=== PATIENT | male | born 1940 | race Caucasian/White ===

== ENCOUNTER 2018-05-02 08:30 | Outpatient (RCR) | payer MEDICARE, SELFPAY | END 2018-05-03 08:44 | LOC: CAR 08:30 | PROVIDERS: Family Provider Family Medicine; PCP Family Medicine; Visit Provider Family Medicine | DX: I20.9 Angina pectoris, unspecified (principal) | CPT/HCPCS: 93798 ==

== ENCOUNTER 2021-08-31 11:32 | Emergency (ER) | payer MEDICARE, SELFPAY ==
[2021-08-31] VITALS (8 sets, daily range): BP systolic 189–218; BP diastolic 99–111; PULSE 84–101; RESP 17–24; TEMP 36.2; O2SAT 95–100; BMI 26.6
--- NOTE | 2021-08-31 11:45 | DI.RAD.S_ITS ---
PROCEDURE: XR CHEST 1V INDICATIONS: shortness of breath TECHNIQUE: One view of the chest was acquired. COMPARISON: [facility], CHEST 2 VIEW, 12/09/2015, 17:18. [facility], CHEST 1 VIEW, 12/14/2015, 20:16. [facility], CHEST 1 VIEW, 01/09/2018, 16:50. FINDINGS: Surgical changes and devices: None. Lungs and pleura: Lungs are clear. No pleural effusions or pneumothorax. Mediastinum: The cardiac contours are within normal limits. The aorta demonstrates calcification and tortuosity. Bones and chest wall: No suspicious bony lesions. Age-appropriate bony degenerative changes are seen. Overlying soft tissues appear unremarkable. IMPRESSION: Portable chest within normal limits seen for age. If there is clinical concern for a developing pulmonary process, a short-term followup chest series (with PA and lateral views, performed in deep inspiration) is suggested for further evaluation. Dictated by: Dean Tomlinson M.D. on 08/31/2021 at 11:08 Approved by: Dean Tomlinson M.D. on 08/31/2021 at 11:08
[2021-08-31 11:59] LABS: Add Manual Diff / Slide Review NO; Basophils Absolute Auto 100 /uL (0-100); Basophils Percent Auto 0.9 % (0-2); Eosinophils Absolute Auto 200 /uL (0-450); Eosinophils Percent Auto 3.9 % (2-4); Hematocrit 32.3 % (41-53); Hemoglobin 10.1 g/dL (13.5-17.5); Lymphocytes Absolute Auto 1500 /uL (1100-4500); Mean Corpuscular HGB Conc 31.3 % (30-36); Mean Corpuscular Hemoglobin 27.3 PG (26-34); Mean Corpuscular Volume 87.3 fL (80-100); Monocytes Absolute Auto 400 /uL (0-900); Monocytes Percent Auto 6.6 % (3-14); Neutrophils Absolute Auto 4000 /uL (1500-7000); Neutrophils Percent Auto 64.6 % (50-75); Platelet Count 206 X10^3/uL (150-400); Red Cell Distribution Width 14.3 % (11.6-14.8); White Blood Cell Count 6.2 X10^3/uL (4.5-11.0)
[2021-08-31 12:10] LABS: Lactate (Lactic Acid) 0.8 mmol/L (0.7-2.1)
[2021-08-31 12:11] LABS: Alanine Aminotransferase 17 IU/L (<50); Albumin Globulin Ratio 1.4 (1.0-2.8); Alkaline Phosphatase 97 U/L (38-126); Aspartate Aminotransferase 27 IU/L (17-59); BUN Creatinine Ratio 13.5 (6-22); Bilirubin Total 0.4 mg/dL (0.2-1.3); Blood Urea Nitrogen 24 mg/dL (9-20); Calcium 9.2 mg/dL (8.4-10.2); Carbon Dioxide 26 mmol/L (22-32); Chloride 105 mmol/L (98-107); Estimated Glomerular Filt Rate 37.1 mL/min (>60); Globulin 2.8 g/dL (1.7-4.1); Glucose 100 mg/dL (80-110); HEMOLYSIS < 15 (0-50); Potassium 3.9 mmol/L (3.4-5.1); Sodium 139 mmol/L (137-145); Total Protein 6.8 g/dL (6.3-8.2)
[2021-08-31 12:23] LABS: NT-proBNP (BNP-Adult 18+) 1890 pg/mL (<450)
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
[2021-08-31] MEDS: FUROSEMIDE 100 MG/10 ML VIAL 60 MG IV (13:08)
== END 2021-08-31 15:49 | disposition home or self-care (01) ==
PROVIDERS: Emergency Provider Emergency Medicine; Family Provider Family Medicine
DX: R60.0 Localized edema (principal); I10 Essential (primary) hypertension; F17.200 Nicotine dependence, unspecified, uncomplicated
CPT/HCPCS: 36415; 71045; 80053; 81003; 83605; 83880; 84484; 85025; 85610; 93005; 93010; 96374; 99284; J1940

== ENCOUNTER 2021-09-02 18:33 | Observation (INO) | payer MEDICARE, SELFPAY ==
[2021-09-02] VITALS (10 sets, daily range): BP systolic 115–139; BP diastolic 56–82; PULSE 67–81; RESP 18–30; TEMP 36.8; O2SAT 96–100
--- NOTE | 2021-09-02 18:40 | DI.RAD.S_ITS ---
PROCEDURE: XR CHEST 2V INDICATIONS: shortness of breath TECHNIQUE: 2 views of the chest were acquired. COMPARISON: [facility], , XR CHEST 1V, 08/31/2021, 11:48. FINDINGS: Surgical changes and devices: None. Lungs and pleura: Lungs are clear. No pleural effusions or pneumothorax. Shadowing over the right mid lung is likely from the right breast. Mediastinum: Mediastinal contours are normal. Heart size is normal. Bones and chest wall: No suspicious bony abnormalities. Soft tissues appear unremarkable. IMPRESSION: No acute cardiopulmonary abnormality. Dictated by: Gregory Matthew M.D. on 09/02/2021 at 19:42 Approved by: Gregory Matthew M.D. on 09/02/2021 at 19:43
[2021-09-02 19:52] LABS: Add Manual Diff / Slide Review NO; Basophils Absolute Auto 0 /uL (0-100); Basophils Percent Auto 0.4 % (0-2); Eosinophils Absolute Auto 0 /uL (0-450); Eosinophils Percent Auto 0.7 % (2-4); Hematocrit 31.5 % (41-53); Hemoglobin 10.3 g/dL (13.5-17.5); Lymphocytes Absolute Auto 1200 /uL (1100-4500); Lymphocytes Percent Auto 16.4 % (25-40); Mean Corpuscular HGB Conc 32.7 % (30-36); Mean Corpuscular Hemoglobin 27.4 PG (26-34); Monocytes Absolute Auto 500 /uL (0-900); Monocytes Percent Auto 7.2 % (3-14); Neutrophils Absolute Auto 5600 /uL (1500-7000); Neutrophils Percent Auto 75.3 % (50-75); Platelet Count 220 X10^3/uL (150-400); Red Blood Cell Count 3.75 X10^6/uL (4.5-5.9); Red Cell Distribution Width 14.3 % (11.6-14.8); White Blood Cell Count 7.5 X10^3/uL (4.5-11.0)
[2021-09-02 19:59] LABS: Alanine Aminotransferase 17 IU/L (<50); Albumin 3.7 g/dL (3.5-5.0); Albumin Globulin Ratio 1.4 (1.0-2.8); Alkaline Phosphatase 72 U/L (38-126); Aspartate Aminotransferase 26 IU/L (17-59); BUN Creatinine Ratio 11.5 (6-22); Bilirubin Total 0.4 mg/dL (0.2-1.3); Blood Urea Nitrogen 33 mg/dL (9-20); Calcium 8.1 mg/dL (8.4-10.2); Carbon Dioxide 32 mmol/L (22-32); Chloride 95 mmol/L (98-107); Estimated Glomerular Filt Rate 21.4 mL/min (>60); Globulin 2.7 g/dL (1.7-4.1); Glucose 102 mg/dL (80-110); HEMOLYSIS < 15 (0-50); Potassium 3.7 mmol/L (3.4-5.1); Sodium 139 mmol/L (137-145); Total Protein 6.4 g/dL (6.3-8.2)
[2021-09-02 20:07] LABS: NT-proBNP (BNP-Adult 18+) 1230 pg/mL (<450)
--- NOTE | 2021-09-02 21:58 | ED.GENADULT ---
HPI - General Adult General Chief complaint: Shortness of Breath/Dyspnea Stated complaint: SOB Time Seen by Provider: 09/02/21 19:10 Source: patient Mode of arrival: Ambulatory Limitations: no limitations History of Present Illness HPI narrative: 80-year-old gentleman seen 2 days ago with complaints of lower extremity edema. He has a diagnosis of hypertension but has not been taking his prescribed 20 mg twice a day lisinopril or followed a Pean 5 mg g daily for a number of months. History of then and STEMI in January of 2018, records indicate a history of hyperlipidemia, hypertension but no mention of congestive heart failure or atrial fibrillation. He does both an ascending and abdominal aneurysm of the aorta with significant peripheral arterial disease. He complains of increasing dyspnea over the last number of days. He was given Lasix in the emergency room 2 days ago and he did restart all of his medications and today he comes back complaining that he is more short of breath but notes that the lower extremity edema is almost entirely resolved. He describes no orthopnea, no specific chest pain he states that he is very short of breath but not necessarily describing exertional edema. He describes no specific palpitations or chest pain. Minor cough was recently given an albuterol inhaler that he states did not help with his dyspnea. No recent fevers, abdominal pain, vomiting, diarrhea, headaches, dysuria or flank pain. Related Data Home Medications Medication Instructions Recorded Confirmed albuterol sulfate 90 mcg/actuation 2 puff INHALATION Q4H PRN 08/31/21 09/03/21 aerosol inhaler (Ventolin HFA) aspirin 81 mg tablet,delayed 81 mg PO DAILY 08/31/21 09/03/21 release felodipine 5 mg tablet,extended 5 mg PO DAILY 08/31/21 09/03/21 release 24 hr lisinopril 20 mg tablet 20 mg PO BID 08/31/21 09/03/21 prednisone 20 mg tablet 40 mg PO DAILY 08/31/21 09/03/21 simvastatin 40 mg tablet 40 mg PO DAILY 08/31/21 09/03/21 Previous Rx's Medication Instructions Recorded furosemide 20 mg tablet (Lasix) 40 mg PO DAILY #60 tab 08/31/21 Allergies Allergy/AdvReac Type Severity Reaction Status Date / Time No Known Drug Allergies Allergy Verified 08/31/21 11:39 Review of Systems Review of Systems Narrative: Remainder of complete review of systems is otherwise unremarkable except for that included in the HPI. Patient History Medical History (Updated 09/02/21 @ 22:25 by Catalina Joiner MD) Aortic aneurysm Essential hypertension Non-ST elevated myocardial infarction Pulmonary nodules/lesions, multiple Social History household members: spouse Smoking Status: Former smoker alcohol intake: former Smoking Status: Current every day smoker alcohol intake frequency: holidays/special occasions only Substance Use Type: does not use Exam Narrative Exam Narrative: General: Chronically ill-appearing gentleman able speak in full sentences with saturations at 99% but complaining of significant dyspnea. HEENT: Moist mucous membranes, normal sclera with reactive pupils, Neck: No JVD, supple Respiratory: Lungs are essentially clear to auscultation, minor scattered wheezing wheezing no rales no rhonchi. Full and symmetrical air movement Cardiac: Irregular with atrial fibrillation noted on telemetry, no murmurs no bruits Abdomen: Soft, nontender, I do not appreciate any pulsatile abdominal masses, good bowel tones, no flank pain Skin: Warm and dry, no rashes Neurologic: Grossly neurologically intact with no obvious asymmetries or abnormalities Extremities: No trauma, no lower extremity edema. Good capillary refill but no palpable dorsalis pedis pulses Psych: Cooperative, appropriate affect Initial Vital Signs Initial Vital Signs: Vital Signs Temperature 98.2 F 09/02/21 18:36 Pulse Rate 67 09/02/21 18:36 Respiratory Rate 20 09/02/21 18:36 Blood Pressure 123/56 L 09/02/21 18:36 Pulse Oximetry 98 09/02/21 18:36 Course Orders Ordered: ED Orders 09/02/21 22:35 COVID19 - ADMIT (MACHINE [employer] swab/PCR) Stat 09/02/21 22:41 D Dimer Stat Troponin I Stat 09/03/21 00:57 CT angio chest PE protocol Stat Albuterol (Albuterol 2.5 Mg/3 Ml Neb (Adult)) 2.5 mg INH [id number] PRN PRN Reason: Shortness Of Breath Or Wheezing Aspirin (Aspirin Ec 81 Mg Tablet) 81 mg PO DAILY PETEY Atorvastatin Calcium (Atorvastatin 20 Mg Tablet) 20 mg PO BEDTIME PETEY Heparin Sodium (Porcine) (Heparin 5,000 Unit/Ml Vial) 5,000 unit SUBCUT BID PETEY Sodium Chloride (Normal Saline 0.9%) 1,000 mls @ 75 mls/hr IV CONT PETEY Stop: 10/03/21 17:49 Last Admin: 09/03/21 05:05 Dose: 100 mls/hr Documented by: LIZBET Ipratropium [place] (Ipratropium 0.5 Mg/2.5 Ml Neb) 0.5 mg INH RTQ4HR PETEY Naloxone HCl (Naloxone 0.4 Mg/Ml Vial) 0.2 mg IV Q2MIN PRN PRN Reason: Opiate Reversal Discontinued Medications Albuterol/Ipratropium (Albuterol/Ipratropium 3 Ml Ampul) 3 ml INH NOW ONE Stop: 09/03/21 02:57 Last Admin: 09/03/21 03:01 Dose: 3 ml Documented by: DAISY Amlodipine Besylate (Amlodipine 5 Mg Tablet) 5 mg PO DAILY [facility] Azithromycin (Azithromycin 250 Mg Tablet) 500 mg PO NOW ONE Stop: 09/03/21 04:29 Last Admin: 09/03/21 05:05 Dose: 500 mg Documented by: LIZBET Enoxaparin Sodium (Enoxaparin 40 Mg/0.4 Ml Syringe) 40 mg SUBCUT DAILY [facility] Sodium Chloride (Normal Saline 0.9%) 1,000 mls @ 1,000 mls/hr IV BOLUS ONE Stop: 09/02/21 23:24 Last Infusion: 09/03/21 04:03 Dose: 0 mls/hr Documented by: Admin: 09/02/21 22:56 Dose: 1,000 mls/hr Documented by: ZACHERY Methylprednisolone (Methylprednisolone 125 Mg/2 Ml Vial) 125 mg IV NOW ONE Stop: 09/03/21 02:57 Last Admin: 09/03/21 03:04 Dose: 125 mg Documented by: CESARIO Non-Formulary Medication (Felodipine) 5 mg PO DAILY [facility] Non-Formulary Medication (Simvastatin) 40 mg PO DAILY [facility] Vital Signs Vital signs: Vital Signs - 8 hr 09/02/21 23:00 09/02/21 23:30 09/03/21 00:00 Pulse Rate 70 76 76 Respiratory Rate 18 22 26 H Blood Pressure Pulse Oximetry 100 100 99 09/03/21 00:30 09/03/21 01:00 09/03/21 01:30 Pulse Rate 76 80 74 Respiratory Rate 19 20 21 Blood Pressure 138/72 166/92 H Pulse Oximetry 98 99 96 09/03/21 02:00 09/03/21 02:30 Pulse Rate 68 80 Respiratory Rate 20 25 H Blood Pressure Pulse Oximetry 99 91 Medical Decision Making Lab Data Result diagrams: 09/02/21 19:02 09/02/21 19:02 Labs: Lab Results 09/02/21 09/02/21 09/02/21 Range/Units 19:02 19:02 19:02 WBC 7.5 (4.5-11.0) X10^3/uL RBC 3.75 L (4.5-5.9) X10^6/uL Hgb 10.3 L (13.5-17.5) g/dL Hct 31.5 L (41-53) % MCV 84.0 D (80-100) fL MCH 27.4 (26-34) PG MCHC 32.7 (30-36) % RDW 14.3 (11.6-14.8) % Plt Count 220 (150-400) X10^3/uL Neut % (Auto) 75.3 H (50-75) % Lymph % (Auto) 16.4 L (25-40) % [place] % (Auto) 7.2 (3-14) % Eos % (Auto) 0.7 L (2-4) % Baso % (Auto) 0.4 (0-2) % Neut # (Auto) 5600 (4205-0012) /uL Lymph # (Auto) 1200 (1409-3041) /uL [place] # (Auto) 500 (0-900) /uL Eos # (Auto) 0 (0-450) /uL Baso # (Auto) 0 (0-100) /uL D-Dimer (<230) ng/mL Sodium 139 (137-145) mmol/L Potassium 3.7 (3.4-5.1) mmol/L Chloride 95 L (98-107) mmol/L Carbon Dioxide 32 (22-32) mmol/L BUN 33 H (9-20) mg/dL Creatinine 2.87 H (0.66-1.25) mg/dL Estimated GFR 21.4 L (>60) mL/min BUN/Creatinine Ratio 11.5 (6-22) Glucose 102 (80-110) mg/dL Lactate 1.0 (0.7-2.1) mmol/L Calcium 8.1 L (8.4-10.2) mg/dL Total Bilirubin 0.4 (0.2-1.3) mg/dL AST 26 (17-59) IU/L ALT 17 (<50) IU/L Alkaline Phosphatase 72 (38-126) U/L Troponin I (0.01-0.034) ng/mL NT-Pro-B Natriuret Pep 1230 H (<450) pg/mL Total Protein 6.4 (6.3-8.2) g/dL Albumin 3.7 (3.5-5.0) g/dL Globulin 2.7 (1.7-4.1) g/dL Albumin/Globulin Ratio 1.4 (1.0-2.8) SARS-CoV-2 (PCR) (Negative) 09/02/21 09/02/21 09/02/21 Range/Units 22:35 22:41 22:41 WBC (4.5-11.0) X10^3/uL RBC (4.5-5.9) X10^6/uL Hgb (13.5-17.5) g/dL Hct (41-53) % MCV (80-100) fL MCH (26-34) PG MCHC (30-36) % RDW (11.6-14.8) % Plt Count (150-400) X10^3/uL Neut % (Auto) (50-75) % Lymph % (Auto) (25-40) % [place] % (Auto) (3-14) % Eos % (Auto) (2-4) % Baso % (Auto) (0-2) % Neut # (Auto) (3498-3614) /uL Lymph # (Auto) (8371-9551) /uL [place] # (Auto) (0-900) /uL Eos # (Auto) (0-450) /uL Baso # (Auto) (0-100) /uL D-Dimer 1764 H (<230) ng/mL Sodium (137-145) mmol/L Potassium (3.4-5.1) mmol/L Chloride (98-107) mmol/L Carbon Dioxide (22-32) mmol/L BUN (9-20) mg/dL Creatinine (0.66-1.25) mg/dL Estimated GFR (>60) mL/min BUN/Creatinine Ratio (6-22) Glucose (80-110) mg/dL Lactate (0.7-2.1) mmol/L Calcium (8.4-10.2) mg/dL Total Bilirubin (0.2-1.3) mg/dL AST (17-59) IU/L ALT (<50) IU/L Alkaline Phosphatase (38-126) U/L Troponin I 0.027 (0.01-0.034) ng/mL NT-Pro-B Natriuret Pep (<450) pg/mL Total Protein (6.3-8.2) g/dL Albumin (3.5-5.0) g/dL Globulin (1.7-4.1) g/dL Albumin/Globulin Ratio (1.0-2.8) SARS-CoV-2 (PCR) Negative (Negative) Imaging Data CT scan - chest: Radiologist's Impression: FINDINGS:? Image quality:? Excellent.? ? Pulmonary arteries:? Pulmonary arteries are normal in size, and demonstrate no intraluminal filling defects to suggest central pulmonary embolism.? ? Lungs and pleura:? Lungs are clear.? Mild centrilobular emphysema.? Calcified granuloma, extreme left lung base.? No pleural effusions or pneumothorax.? Central and peripheral airways are patent.? ? Mediastinum:? Heart size is normal, without pericardial effusion.? No mediastinal or hilar adenopathy.? Thoracic aorta is tortuous.? Ascending aorta is less than 4 cm.? Descending thoracic aorta is mildly aneurysmally dilatation, measuring 3.9 cm. Mild diffuse plaque.? Esophagus is normal in caliber, without hiatal hernia.? ? Bones and chest wall:? No suspicious bony lesions.? Ribs and thoracic spine appear intact throughout.? Thyroid gland is unremarkable..? No axillary or supraclavicular adenopathy.? ? ? Abdomen:? Visualized upper abdominal solid organs appear normal in the early arterial phase of enhancement.? Splenic granulomatous disease.? On the most inferior image, the abdominal aorta measures 4.1 cm. ? IMPRESSION:? ? 1. No evidence acute pulmonary emboli. ? 2. No evidence acute pulmonary process. ? 3. Chronic granulomatous disease.? ? 4. Descending thoracic aortic aneurysm, abdominal aortic aneurysm.? Abdominal aortic aneurysm is minimally imaged.? ? Dictated by: Candido Alvarez M.D. on 09/03/2021 at 1:30? ?? ECG Data Interpretation: #1 Sinus rhythm with PACs at a rate of 69 right bundle branch and left anterior fascicular block, concern for T-wave abnormalities inferiorly #2 2nd EKG and rhythm strip were obtained with concerns of significant sinus arrhythmia Continued significant sinus arrhythmia rate of 76 Inferior T-wave changes are less pronounced MDM Narrative Medical decision making narrative: 80-year-old gentleman presenting with dyspnea recently restarted on lisinopril 20 b.i.d. Lasix 40 mg daily felodipine 5 mg daily and presents with continued dyspnea. Initial EKG is sinus rhythm with PACs with lateral T-wave abnormalities. Telemetry strips look like he is having episodes of significant atrial arrhythmias unclear if it is atrial fibrillation or some type of block. Initial concerns were for infectious etiology however on exam cardiac etiology is almost certainly more likely. Will need to add a troponin, possibility of pulmonary embolism is entertained and with the addition of Lasix he has jumped his creatinine from 1.78 to 2.87 in the last 48 hours. Troponin returns unremarkable with elevated D-dimer.. Will obtain CT scan of the chest, PE protocol. CT scan of the chest is relatively unremarkable. At this time, 80-year-old gentleman presents with severe dyspnea at rest. normal EKG and normal troponins suggest no acute coronary syndrome. Recently treated for lower extremity edema with minor improvement in BNP and significant bump in creatinine. No evidence of worsening of his chronic anemia to suggest reason for his dyspnea. He is not having significant work of breathing, wheezing or evidence of reactive airway or COPD exacerbation. He responded nicely to 2 L of oxygen with subjectively significantly less dyspnea. Would like to admit him overnight for gentle rehydration and following his kidney function. He may well benefit from treatment for COPD and see if this improves his overall dyspnea. Additional cardiac workup may also be indicated. Will go ahead and give him some steroids as well as a DuoNeb and transfer him to the floor. 245am Care is reviewed with the hospitalist and admission is accepted Discharge Plan Departure Patient Disposition: Admitted as Observation Clinical Impression: Acute kidney injury Dyspnea Qualifiers: Dyspnea type: shortness of breath Qualified Code(s): R06.02 - Shortness of breath Admit Date/Time: 09/03/21 02:54 Admit Provider: Anjali Herman
[2021-09-02] MEDS: SODIUM CHLORIDE 0.9% 1,000 ML 1000 ML IV (22:56)
[2021-09-02 23:10] LABS: D Dimer 1764 ng/mL (<230)
[2021-09-02 23:11] LABS: Troponin I 0.027 ng/mL (0.01-0.034)
[2021-09-02 23:47] LABS: COVID19 - ADMIT (NP swab/PCR) Negative (Negative)
[2021-09-03] VITALS (19 sets, daily range): BP systolic 119–166; BP diastolic 60–92; PULSE 53–94; RESP 16–36; TEMP 36.3–37.5; O2SAT 91–100; BMI 21.9
--- NOTE | 2021-09-03 00:57 | DI.CT.S_ITS ---
PROCEDURE: CT ANGIO CHEST PE PROTOCOL INDICATIONS: dyspnea, elvated d dimer TECHNIQUE: After the administration of intravenous contrast, 2 mm thick sections acquired from the pulmonary apices to the posterior costophrenic angles. 3-dimensional maximum intensity projection (MIP) coronal and sagittal reformats were then acquired through the thorax. For radiation dose reduction, the following was used: automated exposure control, adjustment of mA and/or kV according to patient size. COMPARISON: [facility], CT, ANGIO CHEST ABDOMEN PELVIS, 01/09/2018, 18:34. [facility], CR, CHEST 1 VIEW, 01/09/2018, 16:50. FINDINGS: Image quality: Excellent. Pulmonary arteries: Pulmonary arteries are normal in size, and demonstrate no intraluminal filling defects to suggest central pulmonary embolism. Lungs and pleura: Lungs are clear. Mild centrilobular emphysema. Calcified granuloma, extreme left lung base. No pleural effusions or pneumothorax. Central and peripheral airways are patent. Mediastinum: Heart size is normal, without pericardial effusion. No mediastinal or hilar adenopathy. Thoracic aorta is tortuous. Ascending aorta is less than 4 cm. Descending thoracic aorta is mildly aneurysmally dilatation, measuring 3.9 cm. Mild diffuse plaque. Esophagus is normal in caliber, without hiatal hernia. Bones and chest wall: No suspicious bony lesions. Ribs and thoracic spine appear intact throughout. Thyroid gland is unremarkable.. No axillary or supraclavicular adenopathy. Abdomen: Visualized upper abdominal solid organs appear normal in the early arterial phase of enhancement. Splenic granulomatous disease. On the most inferior image, the abdominal aorta measures 4.1 cm. IMPRESSION: 1. No evidence acute pulmonary emboli. 2. No evidence acute pulmonary process. 3. Chronic granulomatous disease. 4. Descending thoracic aortic aneurysm, abdominal aortic aneurysm. Abdominal aortic aneurysm is minimally imaged. Dictated by: Candido Alvarez M.D. on 09/03/2021 at 1:30 Approved by: Candido Alvarez M.D. on 09/03/2021 at 1:37
[2021-09-03] MEDS: ALBUTEROL/IPRATROPIUM 3 ML AMPUL INH (03:01)
[2021-09-03] MEDS: methylPREDNISolone 125 MG/2 ML VIAL IV (03:04)
--- NOTE | 2021-09-03 04:26 | PM.HP.1 ---
History of Present Illness History of Present Illness Date Patient Seen: 09/03/21 Time Patient Seen: 03:45 Chief complaint: SOB Narrative: Jerzy Leon is a 80-year-old male with a history of hypertension, aortic aneurysm that is much being monitored, and COPD presented with dyspnea. Patient did not inform the ED provider that he had COPD, he reports a 60+ year pack history of smoking 4-5 packs per day. He has been borrowing a friend of his oxygen concentrator that he uses as needed. He states that he is currently starting to cough up yellow phlegm, up until now he had been having a mild cough but not productive at all. He denies nausea vomiting, abdominal pain, ever sweats or chills, continues to complain of difficulty breathing, denies chest pain, dysuria, or diarrhea or constipation. The ED provider stated that he had been started on a number of blood pressure medications including Lasix, all at the same time. She felt that he became over diuresed with the Lasix and gave him a bolus of normal saline due to his appearing dehydrated. CTA done in the emergency department ruled out a PE, pneumonia, however it did note a 4.1 cm abdominal aortic aneurysm which he states is being watched by his ?heart doctor.? in [place]. He was administered 125 mg of IV Solu-Medrol, and a albuterol nebulizer in the ED. Patient is afebrile, blood pressure 144/76, heart rate 73, oxygen saturation 99% on 2 L, he weighs 67.3 kg with a BMI of 21.9. Patient is mildly anemic with a hemoglobin and hematocrit of 10.3 and 31.5, platelet count of 220, his D-dimer is mildly elevated at 17 64, chloride 95, normal bicarb, he does have a creatinine of 2.87 which is not normal for him and a GFR of 21.4, BUN is 33, his proBNP was 12 30 which is improved over when he was seen 2 days ago, COVID-19 PCR is negative. Patient History Medical History (Updated 09/02/21 @ 22:25 by Catalina Joiner MD) Aortic aneurysm Essential hypertension Non-ST elevated myocardial infarction Pulmonary nodules/lesions, multiple Family & Social History Social History: household members spouse Prior Living Arrangements House Safety & Behavioral: Feels Safe in Current Yes Environment Been Physically Hurt or No Threatened By a Person Suicidal Ideation Description None Suicide Plan Description No Plan Tobacco & Substance use: Smoking Status Former smoker alcohol intake former alcohol intake frequency holiday/special occasion Substance Use Type does not use Meds Home Medications and Allergies Home Medications Medication Instructions Recorded Confirmed Type albuterol sulfate 90 mcg/actuation 2 puff INHALATION Q4H PRN 08/31/21 08/31/21 History aerosol inhaler (Ventolin HFA) aspirin 81 mg tablet,delayed 81 mg PO DAILY 08/31/21 08/31/21 History release felodipine 5 mg tablet,extended 5 mg PO DAILY 08/31/21 08/31/21 History release 24 hr furosemide 20 mg tablet (Lasix) 40 mg PO DAILY #60 tab 08/31/21 Rx lisinopril 20 mg tablet 20 mg PO BID 08/31/21 08/31/21 History prednisone 20 mg tablet 40 mg PO DAILY 08/31/21 08/31/21 History simvastatin 40 mg tablet 40 mg PO DAILY 08/31/21 08/31/21 History Allergies Allergy/AdvReac Type Severity Reaction Status Date / Time No Known Drug Allergies Allergy Verified 08/31/21 11:39 Review of Systems Review of Systems ROS: Yes All systems reviewed with the patient and are negative except as otherwise documented Exam Vital Signs (past 8 hours): - 09/02/21 20:54 09/02/21 20:55 09/02/21 21:00 Temperature Pulse Rate 71 76 80 Respiratory Rate Blood Pressure 115/69 Pulse Oximetry 97 96 96 09/02/21 21:01 09/02/21 21:30 09/02/21 22:00 Temperature Pulse Rate 76 78 81 Respiratory Rate 22 30 H Blood Pressure 120/60 121/64 127/69 Pulse Oximetry 97 96 96 09/02/21 22:30 09/02/21 23:00 09/02/21 23:30 Temperature Pulse Rate 79 70 76 Respiratory Rate 23 18 22 Blood Pressure 139/82 Pulse Oximetry 99 100 100 09/03/21 00:00 09/03/21 00:30 09/03/21 01:00 Temperature Pulse Rate 76 76 80 Respiratory Rate 26 H 19 20 Blood Pressure 138/72 166/92 H Pulse Oximetry 99 98 99 09/03/21 01:30 09/03/21 02:00 09/03/21 02:30 Temperature Pulse Rate 74 68 80 Respiratory Rate 21 20 25 H Blood Pressure Pulse Oximetry 96 99 91 09/03/21 03:00 09/03/21 03:10 09/03/21 03:30 Temperature Pulse Rate 93 H 82 94 H Respiratory Rate 36 H 20 31 H Blood Pressure Pulse Oximetry 100 100 95 09/03/21 04:20 Temperature 97.3 F L Pulse Rate 73 Respiratory Rate 20 Blood Pressure 144/76 H Pulse Oximetry 99 Oxygen Delivery Method Room Air Oxygen Flow Rate 2 Narrative Exam Narrative: Gen: Alert, oriented, thin 80 y.o. male, chronically ill appearing HEENT: normocephalic, atraumatic, conjunctiva clear, sclera non-icteric, oral mucosa pink and moist Neck: supple, full ROM, no JVD, trachea is midline Resp: Lungs CTA, non-labored breathing CV: RRR, no murmur or rubs Abd: soft, non-tender, normoactive BTs Skin: Thin and friable with multiple bruises on his upper extremities, otherwise, dry and intact Neuro: Alert and oriented X 4 w/no focal deficits. Speech clear and coherent. Extremities: Extremities appear to be dry, moves all 4 extremities, is ambulatory, negative Gayatri?s sign Psyche: normal mood and affect. Objective Labs Result Diagrams: 09/02/21 19:02 09/02/21 19:02 Labs: Laboratory Results - last 24 hr 09/02/21 09/02/21 09/02/21 19:02 19:02 19:02 WBC 7.5 RBC 3.75 L Hgb 10.3 L Hct 31.5 L MCV 84.0 D MCH 27.4 MCHC 32.7 RDW 14.3 Plt Count 220 Neut % (Auto) 75.3 H Lymph % (Auto) 16.4 L [place] % (Auto) 7.2 Eos % (Auto) 0.7 L Baso % (Auto) 0.4 Neut # (Auto) 5600 Lymph # (Auto) 1200 [place] # (Auto) 500 Eos # (Auto) 0 Baso # (Auto) 0 D-Dimer Sodium 139 Potassium 3.7 Chloride 95 L Carbon Dioxide 32 BUN 33 H Creatinine 2.87 H Estimated GFR 21.4 L BUN/Creatinine Ratio 11.5 Glucose 102 Lactate 1.0 Calcium 8.1 L Total Bilirubin 0.4 AST 26 ALT 17 Alkaline Phosphatase 72 Troponin I NT-Pro-B Natriuret Pep 1230 H Total Protein 6.4 Albumin 3.7 Globulin 2.7 Albumin/Globulin Ratio 1.4 SARS-CoV-2 (PCR) 09/02/21 09/02/21 09/02/21 22:35 22:41 22:41 WBC RBC Hgb Hct MCV MCH MCHC RDW Plt Count Neut % (Auto) Lymph % (Auto) [place] % (Auto) Eos % (Auto) Baso % (Auto) Neut # (Auto) Lymph # (Auto) [place] # (Auto) Eos # (Auto) Baso # (Auto) D-Dimer 1764 H Sodium Potassium Chloride Carbon Dioxide BUN Creatinine Estimated GFR BUN/Creatinine Ratio Glucose Lactate Calcium Total Bilirubin AST ALT Alkaline Phosphatase Troponin I 0.027 NT-Pro-B Natriuret Pep Total Protein Albumin Globulin Albumin/Globulin Ratio SARS-CoV-2 (PCR) Negative Assessment & Plan Assessment & Plan narrative: Jerzy Leon is a 80 y.o. male who will be admitted for a COPD exacerbation, likely bacterial. Patient has a new acute kidney injury likely secondary to initiation of lisinopril and Lasix. 1. COPD exacerbation, acute, present on admission Patient will receive albuterol nebulizers and ipratropium/albuterol nebulizers alternating I have asked RT to assess the patient for home O2 He has been initiated on oral azithromycin 500 mg p.o. daily 2. Acute kidney injury, present on admission Lisinopril and Lasix are being held Will continue gentle hydration with normal saline at 100 mL/hour Monitor renal function daily 3. Hyperlipidemia, unknown if new Continue home dose of simvastatin 40 mg p.o. daily 4. Essential hypertension, chronic, present on admission Patient is written for felodipine 5 mg p.o. daily and will likely be auto sub for amlodipine 5 mg p.o. daily VTE Prophylaxis: Wells risk score [3] Enoxaparin 40 mg subQ once daily Patient is admitted to the inpatient service due to the severity of disease, risks of further disease progression and this stay is expected to exceed 2 midnights. FEN: IV fluids: IV normal saline at 100 mls per hour diet: Heart healthy diet, labs: CBC, C/BMP, liver enzymes, Mag, PT/INR Consultants None Dispo: Likely home with PCP follow-up Code status: Full code as discussed with the patient who identifies his , Rani as his surrogate and POA. [X] I confirmed that the patient's advanced care plan is present, code status is determined, or surrogate decision maker is listed on the patient's medical record. [X] I have utilized all available immediate resources to obtain, update, or review of the patient's current medications. These will need to be confirmed with his pharmacy. COVID-19 COVID-19 status: Negative Result date/Date tested (Pos, Neg/Pending): 09/02/21 Scores Wells' Criteria for PE Clinical signs and symptoms of DVT: Yes PE is #1 Dx or equally likely: No Heart rate > 100: No Immobilization at least 3 days or surg in previous 4 weeks: No History of PE or DVT: No Hemoptysis: No Malignancy w/Treatment within 6 months or palliative: No Wells' PE Score total: 3 Quality VTE Deep Vein Thrombosis/Pulmonary Embolism Present on Admission: No MIPS - Admit I confirm the patient?s Advance Care Plan is present, Code status is documented, Surrogate decision maker is in patient?s record [If Yes, STOP here]: Yes MIPS - DC The patient has current or prior documentation of left ventricular ejection fraction (LVEF) less than 40%, or moderate or severely depressed left ventricular systolic function.: No
[2021-09-03] MEDS: SODIUM CHLORIDE 0.9% 1,000 ML 100 ML IV ×2 (05:05→15:27)
[2021-09-03] MEDS: AZITHROMYCIN 250 MG TABLET 500 MG PO (05:05)
--- NOTE | 2021-09-03 05:59 | DI.US.S_ITS ---
PROCEDURE: US RENAL COMPLETE INDICATIONS: IAN TECHNIQUE: Real-time scanning was performed of the kidneys and bladder, with image documentation. COMPARISON: [facility], CT, CT ANGIO CHEST PE PROTOCOL, 09/03/2021, 1:09. [facility], CT, ANGIO CHEST ABDOMEN PELVIS, 01/09/2018, 18:34. FINDINGS: Kidneys: Kidneys are normal in size. Right kidney measures 9.8 cm long; left kidney measures 10.8 cm long. Right renal cortical thickness is 1 cm; left renal cortical thickness is 1.5 cm. Renal cortical echotexture is normal. No hydronephrosis or nephrolithiasis. No suspicious solid mass lesions. Bladder: The bladder is not distended and poorly evaluated. Miscellaneous: No free pelvic fluid. IMPRESSION: Unremarkable kidneys, without hydronephrosis. Dictated by: Dean Tomlinson M.D. on 09/03/2021 at 16:32 Approved by: Dean Tomlinson M.D. on 09/03/2021 at 16:33
[2021-09-03 06:15] LABS: HCO3 ABG 28 mmol/L (22-26); Oxygen Saturation ABG 98 % (95-100); PCO2 ABG 41.9 mmHg (35-45); PO2 ABG 96 mmHg (80-100); TCO2 ABG 30 mmol/L (21-31); pH ABG 7.44 (7.35-7.45)
[2021-09-03 06:16] LABS: Fractionated Inspired Oxygen 28
--- NOTE | 2021-09-03 06:30 | PC.NURSE ---
Pt. admitted for COPD Exacerbation. Pt. arrived to the unit via stretcher and ambulated to the bed without any difficulty. Pt. is a&o, denies pain, 02 2L NC and denies shortness of breath. Oriented to room, call light use and bed control with instruction to never get OOB without any assistance david. that he is attached to the IV pole, 02 and SCD, pt. understood and agreed.
[2021-09-03] MEDS: IPRATROPIUM 0.5 MG/2.5 ML NEB INH ×2 (07:47→11:02)
[2021-09-03] MEDS: ALBUTEROL 2.5 MG/3 ML NEB (ADULT) INH (07:47)
[2021-09-03 08:59] LABS: Add Manual Diff / Slide Review NO; Basophils Absolute Auto 0 /uL (0-100); Basophils Percent Auto 0.2 % (0-2); Eosinophils Absolute Auto 0 /uL (0-450); Hemoglobin 10.8 g/dL (13.5-17.5); Lymphocytes Absolute Auto 400 /uL (1100-4500); Lymphocytes Percent Auto 7.8 % (25-40); Mean Corpuscular HGB Conc 31.7 % (30-36); Mean Corpuscular Hemoglobin 26.9 PG (26-34); Monocytes Absolute Auto 0 /uL (0-900); Monocytes Percent Auto 0.8 % (3-14); Neutrophils Absolute Auto 5100 /uL (1500-7000); Neutrophils Percent Auto 91.2 % (50-75); Platelet Count 223 X10^3/uL (150-400); Red Cell Distribution Width 14.2 % (11.6-14.8); White Blood Cell Count 5.6 X10^3/uL (4.5-11.0)
[2021-09-03] MEDS: HEPARIN 5,000 UNIT/ML VIAL 5000 UNIT SUBCUT ×2 (08:59→21:22)
[2021-09-03] MEDS: ASPIRIN EC 81 MG TABLET PO (08:59)
[2021-09-03 09:12] LABS: BUN Creatinine Ratio 13.5 (6-22); Blood Urea Nitrogen 33 mg/dL (9-20); Calcium 8.8 mg/dL (8.4-10.2); Carbon Dioxide 27 mmol/L (22-32); Chloride 99 mmol/L (98-107); Estimated Glomerular Filt Rate 25.7 mL/min (>60); Glucose 174 mg/dL (80-110); HEMOLYSIS < 15 (0-50); Magnesium 1.9 mg/dL (1.6-2.3); Phosphorous 3.4 mg/dL (2.3-3.7); Potassium 3.4 mmol/L (3.4-5.1); Sodium 136 mmol/L (137-145)
[2021-09-03 09:28] LABS: Procalcitonin 0.25 ng/mL (<0.5)
--- NOTE | 2021-09-03 12:12 | CM.DANOTE ---
DCP: Case received, EMR reviewed and met with patient. Introduced self and role. Was able to obtain information regarding patient's baseline activity status prior to hospitalization. DCP assessment completed with information currently available. Patient is a 80 year old male who admitted early this morning to the care of the hospitalist team. PCP: Dr. Bell at [facility]. Payer: confirmed: Medicare/[employer]. Patient came to the hospital via private vehicle secondary to having increased shortness of breath. Patient did not note any decreased oxygen saturations. He does have history of STEMI in January of 2018, and was recently at the ER for IV Lasix. Patient holds diagnosis of COPD exacerbation, as well as acute kidney injury secondary to diuretics. Met with patient in his room. He was sitting up in his chair, alert and oriented. He is independent at his baseline. He resides in [place] with his spouse, Rani. He uses no [employer], drives. He works on cars as his hobby. He mentioned that he is established at [facility], and has seen different providers. He had seen Dr. Jean-Baptiste at one time, and Dr. Bell refills his prescriptions. He also has a manager diabetes in [place]. P: DCP to continue to follow. Patient should be able to go home after tests are complete, and when he is deemed medically stable. Cornelia Mcqueen RN/Oceanographer Assistant Discharge Planning/Care Management CM Discharge Assessment Start: 09/03/21 12:09 Freq: Status: Active Protocol: Document 09/03/21 12:10 (Rec: 09/03/21 12:12 [id number]) Discharge Planning Assessment Assigned Bridge Maintenance Worker Cornelia Mcqueen RN/Oceanographer Assistant Advance Directives? No History Provided By Patient,Medical Record Prior Living Arrangements House Household Members spouse Type of transporation used prior to Drives own vehicle admit Independent with ADL's Yes Is patient alert and oriented? Yes Caregiver for Another No Barriers to Discharge No Discharge Plan Home Transportation Arrangement Spouse Referrals Initiated None needed Whiteboard Updated in Patient Room with Yes name and ext. # of Bridge Maintenance Worker Review Status In Process Next Review Type Continued Stay Review
[2021-09-03] MEDS: predniSONE 20 MG TABLET 40 MG PO (13:01)
[2021-09-03 14:15] LABS: BUN Creatinine Ratio 16.1 (6-22); Blood Urea Nitrogen 38 mg/dL (9-20); Calcium 8.8 mg/dL (8.4-10.2); Carbon Dioxide 27 mmol/L (22-32); Chloride 98 mmol/L (98-107); Estimated Glomerular Filt Rate 26.8 mL/min (>60); Glucose 186 mg/dL (80-110); HEMOLYSIS < 15 (0-50); Sodium 135 mmol/L (137-145)
[2021-09-03] MEDS: ATORVASTATIN 20 MG TABLET PO (21:22)
[2021-09-03 23:38] LABS: Creatinine Urine Random 163.9 mg/dL; Sodium Urine Random 65 mmol/L (30-90)
[2021-09-04 04:56] VITALS: BP 147/83; PULSE 89; RESP 18; TEMP 36.6; O2SAT 97
[2021-09-04 05:52] LABS: Add Manual Diff / Slide Review NO; Basophils Absolute Auto 0 /uL (0-100); Basophils Percent Auto 0.2 % (0-2); Eosinophils Absolute Auto 0 /uL (0-450); Hematocrit 30.9 % (41-53); Hemoglobin 9.7 g/dL (13.5-17.5); Lymphocytes Absolute Auto 900 /uL (1100-4500); Lymphocytes Percent Auto 5.3 % (25-40); Mean Corpuscular HGB Conc 31.4 % (30-36); Mean Corpuscular Hemoglobin 26.5 PG (26-34); Mean Corpuscular Volume 84.5 fL (80-100); Monocytes Absolute Auto 300 /uL (0-900); Monocytes Percent Auto 2.1 % (3-14); Neutrophils Absolute Auto 14800 /uL (1500-7000); Neutrophils Percent Auto 92.4 % (50-75); Platelet Count 207 X10^3/uL (150-400); Red Blood Cell Count 3.66 X10^6/uL (4.5-5.9); Red Cell Distribution Width 14.3 % (11.6-14.8)
[2021-09-04 05:57] LABS: BUN Creatinine Ratio 21.8 (6-22); Blood Urea Nitrogen 42 mg/dL (9-20); Calcium 8.9 mg/dL (8.4-10.2); Carbon Dioxide 26 mmol/L (22-32); Chloride 104 mmol/L (98-107); Estimated Glomerular Filt Rate 33.8 mL/min (>60); Glucose 119 mg/dL (80-110); HEMOLYSIS < 15 (0-50); Magnesium 1.9 mg/dL (1.6-2.3); Potassium 4.7 mmol/L (3.4-5.1); Sodium 135 mmol/L (137-145)
[2021-09-04 08:00] VITALS: BP 120/69; PULSE 80; RESP 16; TEMP 36.9; O2SAT 96
[2021-09-04] MEDS: HEPARIN 5,000 UNIT/ML VIAL 5000 UNIT SUBCUT (08:28)
[2021-09-04] MEDS: predniSONE 20 MG TABLET 40 MG PO (08:28)
[2021-09-04] MEDS: ASPIRIN EC 81 MG TABLET PO (08:28)
--- NOTE | 2021-09-04 11:55 | PC.NURSE ---
Discharge: Pt feels ready to d/c to home. Seen by MD and given instructions. Has tolerated diet w/out problems, no pain. Vds w/out diff. He has a friend who is coming to meet him at the [employer] and he feels fine walking there. Reviewed d/c packet. He knows he needs to follow up with his doctor in a week. He is currently looking for someone in the clinic he uses. Questions answered. D/c to home via a friend.
--- NOTE | 2021-09-04 22:43 | PM.DS.1 ---
History of Present Illness History of Present Illness Chief complaint: SOB Narrative: Nile Herman Jerzy Leon is a 80-year-old male with a history of hypertension, aortic aneurysm that is much being monitored, and COPD presented with dyspnea. Patient did not inform the ED provider that he had COPD, he reports a 60+ year pack history of smoking 4-5 packs per day. He has been borrowing a friend of his oxygen concentrator that he uses as needed. He states that he is currently starting to cough up yellow phlegm, up until now he had been having a mild cough but not productive at all. He denies nausea vomiting, abdominal pain, ever sweats or chills, continues to complain of difficulty breathing, denies chest pain, dysuria, or diarrhea or constipation. The ED provider stated that he had been started on a number of blood pressure medications including Lasix, all at the same time. She felt that he became over diuresed with the Lasix and gave him a bolus of normal saline due to his appearing dehydrated. CTA done in the emergency department ruled out a PE, pneumonia, however it did note a 4.1 cm abdominal aortic aneurysm which he states is being watched by his ?heart doctor.? in [place]. He was administered 125 mg of IV Solu-Medrol, and a albuterol nebulizer in the ED. Patient is afebrile, blood pressure 144/76, heart rate 73, oxygen saturation 99% on 2 L, he weighs 67.3 kg with a BMI of 21.9. Patient is mildly anemic with a hemoglobin and hematocrit of 10.3 and 31.5, platelet count of 220, his D-dimer is mildly elevated at 17 64, chloride 95, normal bicarb, he does have a creatinine of 2.87 which is not normal for him and a GFR of 21.4, BUN is 33, his proBNP was 12 30 which is improved over when he was seen 2 days ago, COVID-19 PCR is negative. Discharge Providers Provider Date of admission: 09/03/21 02:54 Discharge Date: 09/04/21 Discharge provider: Cory Dinero MD Summary Hospital Course Discharge Diagnosis: 1. IAN 2. Acute COPD exacerbation 3. HTN 4. HL Hospital Course: Mr. Leon was admitted with shortness of breath and weakness. He was found to have a COPD exacerbation and treated with nebulizers and steroids and improved quickly. Prior to admission he had been seen for shortness of breath and was thought to be volume overloaded and given lasix. He was overdiuresed and dehydrated with IAN. He was given IV fluids and his creatinine improved. His lasix and uzair-inhibitor were held at discharge. He is recommended to follow up with his PCP this week to evaluate how he is feeling and to recheck his chemistry panel. His leukocytosis was reactive to steroids. Exam Vital Signs (past 8 hours): Oxygen Delivery Method Room Air Oxygen Flow Rate 0 Narrative Exam Narrative: Gen: no acute distress PULM: clear bilaterally CV: RRR, no murmur or rubs Abd: soft, non-tender, Objective Labs Result Diagrams: 09/04/21 05:30 09/04/21 05:30 Labs: Laboratory Results - last 24 hr 09/03/21 09/04/21 09/04/21 23:12 05:30 05:30 WBC 16.0 H D RBC 3.66 L Hgb 9.7 L Hct 30.9 L MCV 84.5 MCH 26.5 MCHC 31.4 RDW 14.3 Plt Count 207 Neut % (Auto) 92.4 H Lymph % (Auto) 5.3 L [place] % (Auto) 2.1 L Eos % (Auto) 0.0 L Baso % (Auto) 0.2 Neut # (Auto) 39255 H Lymph # (Auto) 900 L [place] # (Auto) 300 Eos # (Auto) 0 Baso # (Auto) 0 Sodium 135 L Potassium 4.7 Chloride 104 Carbon Dioxide 26 BUN 42 H Creatinine 1.93 H Estimated GFR 33.8 L BUN/Creatinine Ratio 21.8 Glucose 119 H Calcium 8.9 Magnesium 1.9 Ur Random Sodium 65 Urine Creatinine 163.9 [facility] Medical History (Updated 09/02/21 @ 22:25 by Catalina Joiner MD) Aortic aneurysm Essential hypertension Non-ST elevated myocardial infarction Pulmonary nodules/lesions, multiple Social History household members: spouse Smoking Status: Former smoker alcohol intake: former Discharge Plan Discharge Plan Patient Disposition: Home Provider Discharge Comment: Mr. Leon came in to the hospital with shortness of breath. He had a COPD exacerbation, this improved with treatment. He also had kidney injury from lasix. This was stopped. However, he may need to be on a lower dose. He should also avoid taking lisinopril right now to let his kidneys continue to recover. He should follow up with his primary doctor within one week. Discharge orders & Medications Prescriptions: New prednisone 20 mg Tablet 40 mg PO DAILY Qty: 6 RF: 0 Continued aspirin 81 mg Tablet,Delayed Release (Dr/Ec) 81 mg PO DAILY RF: 0 simvastatin 40 mg Tablet 40 mg PO DAILY RF: 0 albuterol sulfate [Ventolin HFA] 90 mcg/actuation Hfa Aerosol Inhaler 2 puff INHALATION Q4H PRN (Reason: Shortness Of Breath Or Wheezing) RF: 0 felodipine 5 mg Tablet Extended Release 24 Hr 5 mg PO DAILY RF: 0 Discontinued prednisone 20 mg Tablet 40 mg PO DAILY RF: 0 lisinopril 20 mg Tablet 20 mg PO BID RF: 0 furosemide [Lasix] 20 mg tablet 40 mg PO DAILY Qty: 60 RF: 0 Visit Report/Discharge Packet Instructions: DI for Chronic Obstructive Pulmonary Disease, Acute Kidney Injury Discharge Data Attending Provider: Anjali Hreman VTE Deep Vein Thrombosis/Pulmonary Embolism Present on Admission: No
== END 2021-09-04 10:40 | disposition home or self-care (01) ==
LOC: ED 09-03 02:47 → AC 09-03 06:00
PROVIDERS: Internal Medicine; Admitting Provider Nurse Practitioner Family; Emergency Provider Emergency Medicine; Family Provider Family Medicine; Referring Provider Emergency Medicine; Visit Provider Nurse Practitioner Family
DX: N17.9 Acute kidney failure, unspecified (principal); R06.02 Shortness of breath; J44.1 Chronic obstructive pulmonary disease with (acute) exacerbation; E86.0 Dehydration; R91.8 Other nonspecific abnormal finding of lung field; F17.210 Nicotine dependence, cigarettes, uncomplicated; I10 Essential (primary) hypertension; D64.9 Anemia, unspecified; I25.2 Old myocardial infarction; E78.5 Hyperlipidemia, unspecified; I73.9 Peripheral vascular disease, unspecified; I71.4 Abdominal aortic aneurysm, without rupture; Z20.822 Contact with and (suspected) exposure to COVID-19
CPT/HCPCS: 36415; 36600; 71046; 71275; 76770; 80048; 80053; 82570; 82805; 83605; 83735; 83880; 84100; 84145; 84300; 84484; 85025; 85379; 87070; 87205; 87635; 93005; 93010; 94640; 94762; 96361; 96374; 99284; C9803; G0378; J1644; J2930; J7613; Q9967

== ENCOUNTER 2021-10-20 13:28 | Emergency (ER) | payer MEDICARE, SELFPAY ==
[2021-09-03 04:06] VITALS: BMI 21.9
[2021-10-20 13:36] VITALS: BP 179/111; PULSE 85; RESP 18; TEMP 36.3; O2SAT 97; BMI 24.3
--- NOTE | 2021-10-20 14:48 | PC.NURSE ---
Patient reports right inguinal hernia for approximately 6 months. Reports that pain started this AM when walking around and became significantly worse when moving firewood. Was able to reduce it which eliminated pain all together. Denies other symptoms and has not seen his PCM for this problem specifically.
[2021-10-20 15:27] VITALS: O2SAT 95
[2021-10-20 15:28] VITALS: BP 191/92; PULSE 78; O2SAT 98
[2021-10-20 15:30] VITALS: PULSE 77; O2SAT 98
[2021-10-20 16:00] VITALS: PULSE 82; O2SAT 97
== END 2021-10-20 16:17 | disposition left against medical advice (07) ==
PROVIDERS: Emergency Provider Emergency Medicine; Family Provider Family Medicine; PCP Family Medicine
DX: Z53.21 Procedure and treatment not carried out due to patient leaving prior to being seen by health care provider (principal)
CPT/HCPCS: 99281

== ENCOUNTER 2021-11-29 17:06 | Emergency (ER) | payer MEDICARE, SELFPAY ==
[2021-11-02 15:45] VITALS: BMI 21.9
[2021-11-29] VITALS (22 sets, daily range): BP systolic 93–121; BP diastolic 51–62; PULSE 60–80; RESP 13–25; TEMP 36.9; O2SAT 97–100
--- NOTE | 2021-11-29 17:26 | DI.RAD.S_ITS ---
PROCEDURE: XR CHEST 1V INDICATIONS: chest pain TECHNIQUE: One view of the chest was acquired. COMPARISON: [facility], CR, XR CHEST 2V, 09/02/2021, 18:51. FINDINGS: Surgical changes and devices: None. Lungs and pleura: Lungs are clear. No pleural effusions or pneumothorax. Mediastinum: Mediastinal contours appear normal. Heart size is normal. Bones and chest wall: No suspicious bony lesions. Overlying soft tissues appear unremarkable. IMPRESSION: No acute process. Dictated by: Ernestina Nunes M.D. on 11/29/2021 at 18:04 Approved by: Ernestina Nunes M.D. on 11/29/2021 at 18:05
[2021-11-29 17:53] LABS: Add Manual Diff / Slide Review NO; Basophils Absolute Auto 100 /uL (0-100); Basophils Percent Auto 1.1 % (0-2); Eosinophils Absolute Auto 300 /uL (0-450); Hematocrit 34.4 % (41-53); Hemoglobin 10.8 g/dL (13.5-17.5); Lymphocytes Absolute Auto 2000 /uL (1100-4500); Lymphocytes Percent Auto 23.9 % (25-40); Mean Corpuscular HGB Conc 31.3 % (30-36); Mean Corpuscular Hemoglobin 23.8 PG (26-34); Mean Corpuscular Volume 76.1 fL (80-100); Monocytes Absolute Auto 600 /uL (0-900); Monocytes Percent Auto 7.4 % (3-14); Neutrophils Absolute Auto 5500 /uL (1500-7000); Neutrophils Percent Auto 64.6 % (50-75); Platelet Count 233 X10^3/uL (150-400); Red Blood Cell Count 4.52 X10^6/uL (4.5-5.9); Red Cell Distribution Width 16.9 % (11.6-14.8); White Blood Cell Count 8.5 X10^3/uL (4.5-11.0)
[2021-11-29 18:01] LABS: Prothrombin Time 11.5 SECONDS (10.1-12.7)
[2021-11-29 18:10] LABS: Alanine Aminotransferase 13 IU/L (<50); Albumin 4.4 g/dL (3.5-5.0); Albumin Globulin Ratio 1.4 (1.0-2.8); Alkaline Phosphatase 82 U/L (38-126); Aspartate Aminotransferase 22 IU/L (17-59); BUN Creatinine Ratio 14.8 (6-22); Bilirubin Total 0.6 mg/dL (0.2-1.3); Blood Urea Nitrogen 41 mg/dL (9-20); Calcium 9.5 mg/dL (8.4-10.2); Carbon Dioxide 28 mmol/L (22-32); Chloride 101 mmol/L (98-107); Creatine Kinase 93 U/L (55-170); Estimated Glomerular Filt Rate 22.2 mL/min (>60); Globulin 3.1 g/dL (1.7-4.1); Glucose 162 mg/dL (80-110); HEMOLYSIS < 15 (0-50); Lipase 102 U/L (23-300); Magnesium 2.2 mg/dL (1.6-2.3); Potassium 3.8 mmol/L (3.4-5.1); Sodium 135 mmol/L (137-145); Total Protein 7.5 g/dL (6.3-8.2)
--- NOTE | 2021-11-29 18:14 | ED.DIZZY ---
HPI - Dizziness General Chief Complaint: Dizziness Stated Complaint: sudden drop in blood pressure Time Seen by Provider: 11/29/21 17:50 Source: patient Mode of arrival: Ambulatory History of Present Illness HPI Narrative: Patient is a 80-year-old male with history of hypertension, aortic aneurysm, COPD and known right inguinal hernia, NSTEMI weakness and low blood pressure. He is scheduled for inguinal hernia repair with Dr. Estrella December 14. It has been there for a number of years but has started becoming uncomfortable. His blood pressure was quite high some is instructed to check his blood pressure at home. He was feeling a little dizzy and lightheaded he checked his blood pressure and his systolic was in the 80s. Says that he has not been feeling well over the last 3 days he has been sleeping quite a bit. He denies any fever chills, rigors, chest pain orshortness of breath. He denies any abdominal pain but continues to have discomfort in his right inguinal area. He denies any nausea or vomiting. Related Data Home Medications Medication Instructions Recorded Confirmed albuterol sulfate 90 mcg/actuation 2 puff INHALATION Q4H PRN 08/31/21 11/16/21 aerosol inhaler (Ventolin HFA) aspirin 81 mg tablet,delayed 81 mg PO DAILY 08/31/21 11/16/21 release felodipine 10 mg tablet,extended 10 mg PO DAILY 11/16/21 11/16/21 release 24 hr furosemide 20 mg tablet 20 mg PO BID 11/16/21 11/16/21 lisinopril 20 mg tablet 20 mg PO BID 11/16/21 11/16/21 simvastatin 40 mg tablet 40 mg PO DAILY 11/16/21 11/16/21 Allergies Allergy/AdvReac Type Severity Reaction Status Date / Time No Known Drug Allergies Allergy Verified 11/16/21 14:30 Review of Systems Review of Systems Narrative: GENERAL: + generalized weakness Denies chills, fatigue, malaise, fever, sweats, travel HEENT: Denies sinus pain, ear pain, sore throat, difficulty swallowing, neck pain RESPIRATORY: Denies dyspnea, cough, wheezing, hemoptysis, sputum. CARDIOVASCULAR: Denies chest pain, palpitations, orthopnea, edema GASTROINTESTINAL: Denies nausea, vomiting, abdominal pain, diarrhea, constipation, melena. : Denies dysuria, frequency, incontinence, hematuria, urinary retention, flank pain. MUSCULOSKELETAL: Denies weakness, joint pain, or bony pain SKIN: No rash, no erythema, no pruritus NEUROLOGIC: Denies weakness, dizziness, headache, numbness, change in speech, confusion PSYCHIATRIC: No concerning psychosocial issues. 12 point review of systems is negative except for those stated above and HPI Patient History Medical History Acute bronchitis Aortic aneurysm CAD (coronary artery disease) Cardiac dysrhythmia Carotid artery occlusion Cervical radiculopathy Chronic kidney disease, stage 3 Claudication COPD (chronic obstructive pulmonary disease) Erectile dysfunction Essential (primary) hypertension Essential hypertension Hyperlipidemia Inguinal hernia Non-ST elevated myocardial infarction Pulmonary nodule Pulmonary nodules/lesions, multiple PVD (peripheral vascular disease) Social History household members: spouse Smoking Status: Former smoker alcohol intake: former Smoking Status: Former smoker alcohol intake frequency: holidays/special occasions only Substance Use Type: does not use Exam Initial Vital Signs Initial Vital Signs: Vital Signs Temperature 98.5 F 11/29/21 17:22 Pulse Rate 69 11/29/21 17:22 Respiratory Rate 24 11/29/21 17:22 Blood Pressure 104/59 L 11/29/21 17:22 Pulse Oximetry 97 11/29/21 17:22 GENERAL: Alert week 80-year-old male in no acute distress. HEENT: Head atraumatic,EOMI, pupils reactive, face symmetric, moist mucous membranes CARDIOVASCULAR: Regular rate and rhythm without murmurs, rubs or gallops. RESPIRATORY: Breath sounds equal bilaterally, no wheezes rales or rhonchi. ABDOMEN: Soft, nontender. Normoactive bowel sounds all 4 quadrants. No guarding or rebound. : No CVA tenderness EXTREMITIES: Normal range of motion, no clubbing or edema. Neurovascularly intact NEUROLOGICAL: Alert and oriented x4.Normal gait and speech. SKIN: Warm, dry, no laceration, no petechiae, no rashes or lesions. Course Orders Ordered: ED Orders 11/29/21 17:26 XR chest 1V Stat EKG-12 Lead Stat 11/29/21 17:45 COVID19 -Nasal swab/Pre-Proc Stat 11/29/21 17:48 BNP [NT-proBNP (BNP-Adult 18+)] Stat Complete Blood Count AUTO DIFF Stat Comprehensive Metabolic Panel Stat Lactate (Lactic Acid) Stat Lipase Stat Magnesium Stat Procalcitonin Stat Prothrombin Time INR Stat Troponin & CK Cardiac Panel Stat 11/29/21 18:36 US abd aorta aneurysm screen Stat 11/29/21 20:05 Trop I [Troponin I] Stat 11/29/21 20:48 UA Complete [Urinalysis and Microscopic] Stat Discontinued Medications Sodium Chloride (Normal Saline 0.9%) 1,000 mls @ 1,000 mls/hr IV BOLUS ONE Stop: 11/29/21 19:14 Last Infusion: 11/29/21 19:27 Dose: 0 mls/hr Documented by: Admin: 11/29/21 18:16 Dose: 1,000 mls/hr Documented by: JEFRY Vital Signs Vital signs: Vital Signs - 8 hr 11/29/21 17:47 11/29/21 17:50 11/29/21 18:00 Pulse Rate 62 63 72 Respiratory Rate 20 22 Blood Pressure 106/55 L 112/62 93/51 L Pulse Oximetry 100 100 98 11/29/21 18:11 11/29/21 18:20 11/29/21 18:30 Pulse Rate 61 60 64 Respiratory Rate 16 15 24 Blood Pressure 115/58 L 93/54 L Pulse Oximetry 100 100 99 11/29/21 18:31 11/29/21 18:40 11/29/21 18:41 Pulse Rate 64 60 62 Respiratory Rate 25 H 15 21 Blood Pressure 97/60 114/57 L Pulse Oximetry 99 99 99 11/29/21 18:50 11/29/21 19:00 11/29/21 19:10 Pulse Rate 60 60 63 Respiratory Rate 17 17 21 Blood Pressure 106/53 L 111/58 L 104/53 L Pulse Oximetry 99 99 99 11/29/21 19:20 11/29/21 19:30 11/29/21 19:31 Pulse Rate 65 64 64 Respiratory Rate 14 13 14 Blood Pressure 112/55 L 109/57 L Pulse Oximetry 98 98 98 11/29/21 19:40 11/29/21 19:50 11/29/21 20:00 Pulse Rate 66 73 66 Respiratory Rate 15 23 19 Blood Pressure 121/62 108/58 L 100/56 L Pulse Oximetry 98 97 97 11/29/21 20:10 11/29/21 20:20 11/29/21 21:30 Pulse Rate 62 72 80 Respiratory Rate 19 24 18 Blood Pressure 94/53 L 112/56 L 101/55 L Pulse Oximetry 97 98 99 MDM - Dizziness Lab Data Result diagrams: 11/29/21 17:48 11/29/21 17:48 Labs: Lab Results 11/29/21 11/29/21 11/29/21 Range/Units 17:45 17:48 17:48 WBC 8.5 (4.5-11.0) X10^3/uL RBC 4.52 (4.5-5.9) X10^6/uL Hgb 10.8 L (13.5-17.5) g/dL Hct 34.4 L (41-53) % MCV 76.1 L (80-100) fL MCH 23.8 L (26-34) PG MCHC 31.3 (30-36) % RDW 16.9 H (11.6-14.8) % Plt Count 233 (150-400) X10^3/uL Neut % (Auto) 64.6 (50-75) % Lymph % (Auto) 23.9 L (25-40) % [place] % (Auto) 7.4 (3-14) % Eos % (Auto) 3.0 (2-4) % Baso % (Auto) 1.1 (0-2) % Neut # (Auto) 5500 (6315-6575) /uL Lymph # (Auto) 2000 (4399-2599) /uL [place] # (Auto) 600 (0-900) /uL Eos # (Auto) 300 (0-450) /uL Baso # (Auto) 100 (0-100) /uL PT 11.5 (10.1-12.7) SECONDS INR 1.0 (0.9-1.3) Sodium (137-145) mmol/L Potassium (3.4-5.1) mmol/L Chloride (98-107) mmol/L Carbon Dioxide (22-32) mmol/L BUN (9-20) mg/dL Creatinine (0.66-1.25) mg/dL Estimated GFR (>60) mL/min BUN/Creatinine Ratio (6-22) Glucose (80-110) mg/dL Lactate (0.7-2.1) mmol/L Calcium (8.4-10.2) mg/dL Magnesium (1.6-2.3) mg/dL Total Bilirubin (0.2-1.3) mg/dL AST (17-59) IU/L ALT (<50) IU/L Alkaline Phosphatase (38-126) U/L Total Creatine Kinase (55-170) U/L CK-MB (CK-2) CK-MB (CK-2) Rel Index Troponin I (0.01-0.034) ng/mL NT-Pro-B Natriuret Pep (<450) pg/mL Total Protein (6.3-8.2) g/dL Albumin (3.5-5.0) g/dL Globulin (1.7-4.1) g/dL Albumin/Globulin Ratio (1.0-2.8) Lipase (23-300) U/L Procalcitonin (<0.5) ng/mL Urine Color Urine Appearance Urine pH (4.5-8.0) Ur Specific [place] (1.000-1.035) Urine Protein (Negative) Urine Glucose (UA) (Negative) g/dL Urine Ketones (NEGATIVE) Urine Occult Blood (Negative) Urine Nitrate (Negative) Urine Bilirubin (NEGATIVE) Urine Urobilinogen (0.2) E.U./dL Ur Leukocyte Esterase (NEGATIVE) Urine RBC (0-5/HPF) Urine WBC (0-5/HPF) Urine Bacteria (None) Ur Culture Indicated? SARS-CoV-2 (PCR) Negative (Negative) 11/29/21 11/29/21 11/29/21 Range/Units 17:48 17:48 17:48 WBC (4.5-11.0) X10^3/uL RBC (4.5-5.9) X10^6/uL Hgb (13.5-17.5) g/dL Hct (41-53) % MCV (80-100) fL MCH (26-34) PG MCHC (30-36) % RDW (11.6-14.8) % Plt Count (150-400) X10^3/uL Neut % (Auto) (50-75) % Lymph % (Auto) (25-40) % [place] % (Auto) (3-14) % Eos % (Auto) (2-4) % Baso % (Auto) (0-2) % Neut # (Auto) (9334-1224) /uL Lymph # (Auto) (4161-3659) /uL [place] # (Auto) (0-900) /uL Eos # (Auto) (0-450) /uL Baso # (Auto) (0-100) /uL PT (10.1-12.7) SECONDS INR (0.9-1.3) Sodium 135 L (137-145) mmol/L Potassium 3.8 (3.4-5.1) mmol/L Chloride 101 (98-107) mmol/L Carbon Dioxide 28 (22-32) mmol/L BUN 41 H (9-20) mg/dL Creatinine 2.77 H (0.66-1.25) mg/dL Estimated GFR 22.2 L (>60) mL/min BUN/Creatinine Ratio 14.8 (6-22) Glucose 162 H (80-110) mg/dL Lactate 1.8 (0.7-2.1) mmol/L Calcium 9.5 (8.4-10.2) mg/dL Magnesium 2.2 (1.6-2.3) mg/dL Total Bilirubin 0.6 (0.2-1.3) mg/dL AST 22 (17-59) IU/L ALT 13 (<50) IU/L Alkaline Phosphatase 82 (38-126) U/L Total Creatine Kinase 93 (55-170) U/L CK-MB (CK-2) TNP CK-MB (CK-2) Rel Index TNP Troponin I 0.023 (0.01-0.034) ng/mL NT-Pro-B Natriuret Pep 272 (<450) pg/mL Total Protein 7.5 (6.3-8.2) g/dL Albumin 4.4 (3.5-5.0) g/dL Globulin 3.1 (1.7-4.1) g/dL Albumin/Globulin Ratio 1.4 (1.0-2.8) Lipase 102 (23-300) U/L Procalcitonin (<0.5) ng/mL Urine Color Urine Appearance Urine pH (4.5-8.0) Ur Specific [place] (1.000-1.035) Urine Protein (Negative) Urine Glucose (UA) (Negative) g/dL Urine Ketones (NEGATIVE) Urine Occult Blood (Negative) Urine Nitrate (Negative) Urine Bilirubin (NEGATIVE) Urine Urobilinogen (0.2) E.U./dL Ur Leukocyte Esterase (NEGATIVE) Urine RBC (0-5/HPF) Urine WBC (0-5/HPF) Urine Bacteria (None) Ur Culture Indicated? SARS-CoV-2 (PCR) (Negative) 11/29/21 11/29/21 11/29/21 Range/Units 17:48 20:05 20:48 WBC (4.5-11.0) X10^3/uL RBC (4.5-5.9) X10^6/uL Hgb (13.5-17.5) g/dL Hct (41-53) % MCV (80-100) fL MCH (26-34) PG MCHC (30-36) % RDW (11.6-14.8) % Plt Count (150-400) X10^3/uL Neut % (Auto) (50-75) % Lymph % (Auto) (25-40) % [place] % (Auto) (3-14) % Eos % (Auto) (2-4) % Baso % (Auto) (0-2) % Neut # (Auto) (3570-5562) /uL Lymph # (Auto) (0335-2946) /uL [place] # (Auto) (0-900) /uL Eos # (Auto) (0-450) /uL Baso # (Auto) (0-100) /uL PT (10.1-12.7) SECONDS INR (0.9-1.3) Sodium (137-145) mmol/L Potassium (3.4-5.1) mmol/L Chloride (98-107) mmol/L Carbon Dioxide (22-32) mmol/L BUN (9-20) mg/dL Creatinine (0.66-1.25) mg/dL Estimated GFR (>60) mL/min BUN/Creatinine Ratio (6-22) Glucose (80-110) mg/dL Lactate (0.7-2.1) mmol/L Calcium (8.4-10.2) mg/dL Magnesium (1.6-2.3) mg/dL Total Bilirubin (0.2-1.3) mg/dL AST (17-59) IU/L ALT (<50) IU/L Alkaline Phosphatase (38-126) U/L Total Creatine Kinase (55-170) U/L CK-MB (CK-2) CK-MB (CK-2) Rel Index Troponin I 0.018 (0.01-0.034) ng/mL NT-Pro-B Natriuret Pep (<450) pg/mL Total Protein (6.3-8.2) g/dL Albumin (3.5-5.0) g/dL Globulin (1.7-4.1) g/dL Albumin/Globulin Ratio (1.0-2.8) Lipase (23-300) U/L Procalcitonin 0.12 (<0.5) ng/mL Urine Color Yellow Urine Appearance Clear Urine pH 5.0 (4.5-8.0) Ur Specific [place] 1.020 (1.000-1.035) Urine Protein Negative (Negative) Urine Glucose (UA) Negative (Negative) g/dL Urine Ketones Negative (NEGATIVE) Urine Occult Blood Negative (Negative) Urine Nitrate Negative (Negative) Urine Bilirubin Negative (NEGATIVE) Urine Urobilinogen 0.2 (0.2) E.U./dL Ur Leukocyte Esterase Negative (NEGATIVE) Urine RBC 0-1/hpf (0-5/HPF) Urine WBC 0-1/hpf (0-5/HPF) Urine Bacteria None seen (None) Ur Culture Indicated? Cult not indicated SARS-CoV-2 (PCR) (Negative) Imaging Data US - abdomen: Radiologist's Impression: PROCEDURE:? US ABD AORTA ANEURYSM SCREEN ? INDICATIONS:? PAIN ? TECHNIQUE:? Real time scanning was performed of the aorta and iliac arteries, with image documentation.? ? COMPARISON:? None. ? FINDINGS:? Aorta:? Proximal aortic diameter measures 2.8 cm.? Mid-aorta measures 3.0 cm.? Distal aortic diameter is 5.0 cm.? Moderate mural thrombus ? Iliac arteries:? Right common iliac artery measures 1.3 cm.? Left common iliac artery measures 1.4 cm.? ? ? IMPRESSION:? Abdominal aortic aneurysm measuring 50 mm. ? Dictated by: Ernestina Nunes M.D. on 11/29/2021 at 19:32 ? ? ECG Data Interpretation: Sinus rhythm rate 61 SC interval 178 QRS 118 not right bundle-branch block noted similar to previous EKG no ST changes MDM Narrative Medical decision making narrative: The patient has not been feeling well for last 3 days but no sign or evidence of infection. Blood pressure improved with 1 L of fluid. Remembers that he actually took all of his blood pressure medications at 1 time which may have contributed to hypotension. He is ambulatory in the ED to the restroom without any difficulty overall feeling significantly better. He has 2- troponins. He had no abdominal aortic aneurysm ultrasound confirms that it is stable, no sign of rupture. Discharge Plan Departure Patient Disposition: Home Clinical Impression: Orthostatic hypotension, Aortic aneurysm Instructions: Orthostatic Hypotension Activity Restrictions/Additional Instructions: *You have been diagnosed with orthostatic hypotension *What to do: Do not take all blood pressure medications at once I think this was the cause of your low blood pressure am glad that you are feeling better. *Continue to take medications as directed *Follow up with your primary care provider in 2-3 days or call [phone] *Return to ER if you should have dizziness lightheadedness abdominal pain nausea vomiting or any new, worsening or concerning symptoms Prescriptions: No Action simvastatin 40 mg tablet 40 mg PO DAILY 0RF lisinopril 20 mg tablet 20 mg PO BID 0RF furosemide 20 mg tablet 20 mg PO BID 0RF felodipine 10 mg tablet extended release 24 hr 10 mg PO DAILY 0RF aspirin 81 mg Tablet,Delayed Release (Dr/Ec) 81 mg PO DAILY 0RF albuterol sulfate [Ventolin HFA] 90 mcg/actuation Hfa Aerosol Inhaler 2 puff INHALATION Q4H PRN (Reason: Shortness Of Breath Or Wheezing) 0RF Referrals: Brad Jean-Baptiste MD [Primary Care Provider] -
[2021-11-29] MEDS: SODIUM CHLORIDE 0.9% 1,000 ML 1000 ML IV (18:16)
[2021-11-29 18:21] LABS: Troponin I 0.023 ng/mL (0.01-0.034)
[2021-11-29 18:26] LABS: NT-proBNP (BNP-Adult 18+) 272 pg/mL (<450)
--- NOTE | 2021-11-29 18:36 | DI.US.S_ITS ---
PROCEDURE: US ABD AORTA ANEURYSM SCREEN INDICATIONS: PAIN TECHNIQUE: Real time scanning was performed of the aorta and iliac arteries, with image documentation. COMPARISON: None. FINDINGS: Aorta: Proximal aortic diameter measures 2.8 cm. Mid-aorta measures 3.0 cm. Distal aortic diameter is 5.0 cm. Moderate mural thrombus Iliac arteries: Right common iliac artery measures 1.3 cm. Left common iliac artery measures 1.4 cm. IMPRESSION: Abdominal aortic aneurysm measuring 50 mm. Dictated by: Ernestina Nunes M.D. on 11/29/2021 at 19:32 Approved by: Ernestina Nunes M.D. on 11/29/2021 at 19:33
[2021-11-29 19:13] LABS: Lactate (Lactic Acid) 1.8 mmol/L (0.7-2.1)
[2021-11-29 19:29] LABS: COVID19 -Nasal RAPID Negative (Negative)
[2021-11-29 19:31] LABS: Procalcitonin 0.12 ng/mL (<0.5)
[2021-11-29 20:41] LABS: Troponin I 0.018 ng/mL (0.01-0.034)
[2021-11-29 21:05] LABS: Appearance Urine UA CLEAR; Bilirubin Urine UA NEGATIVE (NEGATIVE); Color Urine UA YELLOW; Glucose Urine UA NEGATIVE (Negative); Ketones Urine UA NEGATIVE (NEGATIVE); Leukocyte Esterase Urine UA NEGATIVE (NEGATIVE); Nitrite Urine UA NEGATIVE (Negative); Occult Blood Urine UA NEGATIVE (Negative); Protein Urine UA NEGATIVE (Negative); Urobilinogen Urine UA 0.2 E.U./dL (0.2)
[2021-11-29 21:18] LABS: Bacteria Urine None Seen; Culture Indicated Urine Cult Not Indicated; RBC Urine 0-1/HPF (0-5/HPF); WBC Urine 0-1/HPF (0-5/HPF)
== END 2021-11-29 21:37 | disposition home or self-care (01) ==
PROVIDERS: Emergency Medicine; Emergency Provider Emergency Medicine; Family Provider Family Medicine; PCP Family Medicine
DX: I95.1 Orthostatic hypotension (principal); I71.4 Abdominal aortic aneurysm, without rupture; Z87.891 Personal history of nicotine dependence; Z20.822 Contact with and (suspected) exposure to COVID-19
CPT/HCPCS: 36415; 71045; 76706; 80053; 81001; 82550; 83605; 83690; 83735; 83880; 84145; 84484; 85025; 85610; 87635; 93005; 93010; 96360; 99284; C9803

== ENCOUNTER → 2022-01-23 11:29 | Outpatient (CLI) | payer MEDICARE, SELFPAY ==
[2021-11-02 15:45] VITALS: BMI 21.9
[2022-01-23 13:23] LABS: COVID19 -Nasal RAPID Negative (Negative)
== END ==
PROVIDERS: Family Provider Family Medicine; PCP Family Medicine; Visit Provider Surgery
DX: Z01.812 Encounter for preprocedural laboratory examination (principal); Z20.822 Contact with and (suspected) exposure to COVID-19
CPT/HCPCS: 87635; C9803

== ENCOUNTER 2022-01-24 09:38 | Day surgery (SDC) | payer MEDICARE, SELFPAY ==
[2021-11-02 15:45] VITALS: BMI 21.9
[2022-01-23 14:55] VITALS: BMI 22.8
[2022-01-24 10:30] VITALS: BMI 22.8
[2022-01-24 10:40] VITALS: BP 199/121; PULSE 88; RESP 18; TEMP 36.7; O2SAT 99
[2022-01-24] MEDS: LACTATED RINGERS 1,000 ML 100 ML IV (10:42)
[2022-01-24 10:43] VITALS: BP 200/100; PULSE 86; O2SAT 98
--- NOTE | 2022-01-24 11:48 | PM.HP.1 ---
History of Present Illness History of Present Illness Date Patient Seen: 01/24/22 Time Patient Seen: 11:48 Chief complaint: SDC Narrative: 81 y.o man here for elective open right inguinal hernia repair. No interval changes in health. Please refer to H&P from 11/16/21 for further detail. Patient History Medical History (Updated 01/24/22 @ 11:50 by Skip Estrella MD) Acute bronchitis Aortic aneurysm CAD (coronary artery disease) Cardiac dysrhythmia Carotid artery occlusion Cervical radiculopathy Chronic kidney disease, stage 3 Claudication COPD (chronic obstructive pulmonary disease) Easy bruisability Erectile dysfunction Essential (primary) hypertension Essential hypertension Hyperlipidemia Inguinal hernia Non-ST elevated myocardial infarction Pulmonary nodule Pulmonary nodules/lesions, multiple PVD (peripheral vascular disease) Surgical History Hx of cholecystectomy (~2017) Status post carotid surgery Family & Social History Social History: household members spouse Tobacco & Substance use: Tobacco type cigarettes Smoking Status Former smoker alcohol intake former alcohol intake frequency holiday/special occasion Substance Use Type does not use Meds Home Medications and Allergies Home Medications Medication Instructions Recorded Confirmed Type albuterol sulfate 90 mcg/actuation 2 puff INHALATION Q4H PRN 08/31/21 01/24/22 History aerosol inhaler (Ventolin HFA) aspirin 81 mg tablet,delayed 81 mg PO DAILY 08/31/21 01/24/22 History release felodipine 10 mg tablet,extended 10 mg PO DAILY 11/16/21 01/24/22 History release 24 hr furosemide 20 mg tablet 20 mg PO BID 11/16/21 01/24/22 History lisinopril 20 mg tablet 20 mg PO BID 11/16/21 01/24/22 History simvastatin 40 mg tablet 40 mg PO DAILY 11/16/21 01/24/22 History Allergies Allergy/AdvReac Type Severity Reaction Status Date / Time No Known Drug Allergies Allergy Verified 01/24/22 10:10 Exam Vital Signs (past 8 hours): - 01/24/22 10:40 01/24/22 10:43 Temperature 98.1 F Pulse Rate 88 86 Respiratory Rate 18 Blood Pressure 199/121 H 200/100 H Pulse Oximetry 99 98 Oxygen Delivery Method Room Air Narrative Exam Narrative: Gen-Elderly man alert and oriented Abdomen-Soft, large R inguinal hernia marked with initials. Assessment & Plan Assessment and plan (1) Inguinal hernia: Status: Acute Assessment & Plan narrative: 81 y.o man here for elective right inguinal hernia repair. Risks including bleeding infection reoccurence damage to cord structures were discussed. In agreement with this plan. Time Spent With Patient Critical Care time: I spent a total of [] minutes of critical care time on this patient's care today; this time is exclusive of procedural time.
[2022-01-24] MEDS: CEFAZOLIN 2 GM/20 ML SYRINGE IV (12:05)
--- NOTE | 2022-01-24 12:15 | SUR.OPER ---
Supine on padded OR bed, head on pillow, arms secured on padded arm boards at <90 degrees abduction, legs uncrossed, safety belt at thigh, tape over blanket over lower legs.
[2022-01-24] MEDS: BUPIVACAINE 0.25% (PF) VIAL 30 ML INJ (12:20)
[2022-01-24 13:22] VITALS: BP 142/76; PULSE 70; RESP 15; TEMP 36.8; O2SAT 98
[2022-01-24 13:35] VITALS: BP 176/94; PULSE 76; RESP 15; O2SAT 97
[2022-01-24 13:47] VITALS: BP 172/96; PULSE 73; RESP 12; O2SAT 97
[2022-01-24] MEDS: OXYCODONE IR 5 MG TABLET PO (13:59)
[2022-01-24] MEDS: ACETAMINOPHEN 325 MG TABLET 650 MG PO (13:59)
--- NOTE | 2022-01-26 08:35 | P.OP_ITS ---
Operative Date/Time/Diagnoses Date of procedure: 01/25/22 Time of procedure: 08:35 Pre-op diagnosis: right inguinal hernia Post-op diagnosis: same Procedure & Clinicians Procedure: Open right inguinal hernia repair Same procedure as scheduled: Yes Indications: Symptomatic non reducible right inguinal hernia Surgeon: Skip Sherman Yes if Unassisted: Yes Anesthesia Type: General Operative Notes Findings: Large indirect defect containing bowel Specimen(s): none sent Estimated Blood Loss (mL): 10 Procedure in detail: The patient was placed supine on the table and bilateral lower extremity compression devices were applied. Anesthesia was induced they were intubated with an LMA and received Ancef. A time-out was performed. They were prepped and draped in sterile fashion. The right external inguinal ring and the anterior superior iliac crest were identified and marked. 1 finger breath above the inguinal ligament the skin was infiltrated with 0.25% bupivacaine. The skin incision was made here and the subcutaneous tissues were divided with electrocautery exposing the external oblique aponeurosis which was then opened along the direction of its fibers. Using blunt dissection the internal oblique aporneurosis was from the external oblique upper leaflet. Using a kittner the cord was carefully dissected away from the inguinal canal adjacent to the pubic tubercle. The cord including the vas deferens, testicular bloody supply, ilioguinal and genital nerve were encircled with a Analilia drain. No direct floor defect was identified. The cremasteric fibers surrounding the cord were divided using electrocautery adjacent to the internal ring. The vas deferens and the testicular vessels were preserved and protected. There was a large intestinal containing indirect hernia on the anterior medial aspect of the cord which was skeletonized away from the vas deferens and testicular blood supply. The indirect hernia was skeletonized back to the internal ring and reduced spontaneously into the abdomen. Plug of mesh was placed into the internal ring and secured to the adjacent fascia to recreate the internal ring. Selected a 7x 15 cm lightweight Pro Loop hernia mesh. The inferior medial aspect of the mesh was anchored to insertion of the rectus muscle to the pubic tubercle such that there was approximately 2 cm of tubercle overlap with Ethibond and then was run in interrupted fashion along the inferior edge of the mesh to the shelving edge of the inguinal ligament. Interrupted 3 0 Vicryl suture was used to anchor the superior aspect of the mesh to the conjoined tendon in several places. The tails were then reapproximated loosely around the spermatic cord. The tails of the mesh were then tucked under the external oblique aponeurosis. The repair was checked for hemostasis. The wound was irrigated with sterile saline. The external oblique aponeurosis was reapproximated in a running fashion using 3 0 Vicryl. The subcutaneous tissues were reapproximated with 3 0 Vicryl skin closed with 4 0 Monocryl followed by the application of Dermabond. At the end of the operation I ensured that both testicles were within the scrotum. The sponge instrument count at the end operation was correct. The patient emerged from anesthesia was extubated and t ransferred to the postoperative care unit in stable condition. A total of 30 ml of of 0.25% bupivicaine was used to infiltrate the skin. Complications: none Post-operative Condition: stable Disposition: same day surgery
== END 2022-01-24 14:30 | disposition home or self-care (01) ==
PROVIDERS: Family Provider Family Medicine; PCP Family Medicine; Referring Provider Surgery; Visit Provider Surgery
PROC: (CPT 49507; principal; 2022-01-24 11:30)
DX: K40.30 Unilateral inguinal hernia, with obstruction, without gangrene, not specified as recurrent (principal); I25.10 Atherosclerotic heart disease of native coronary artery without angina pectoris; J44.9 Chronic obstructive pulmonary disease, unspecified; I12.9 Hypertensive chronic kidney disease with stage 1 through stage 4 chronic kidney disease, or unspecified chronic kidney disease; N18.30 Chronic kidney disease, stage 3 unspecified
CPT/HCPCS: 49507; 82962; J0690; J1100; J2405; J2704; J3010

== ENCOUNTER → 2022-05-08 11:00 | Outpatient (CLI) | payer MEDICARE, SELFPAY ==
[2022-01-27 09:06] VITALS: BMI 21.9
== END ==
PROVIDERS: Family Provider Family Medicine; PCP Family Medicine; Referring Provider Family Medicine; Visit Provider Family Medicine
DX: Z53.20 Procedure and treatment not carried out because of patient's decision for unspecified reasons (principal)

== ENCOUNTER 2023-10-25 01:45 | Emergency (ER) | payer MEDICARE, SELFPAY ==
[2022-01-27 09:06] VITALS: BMI 21.9
[2023-10-25] VITALS (8 sets, daily range): BP systolic 177–199; BP diastolic 93–94; PULSE 87–100; RESP 26; TEMP 37.1; O2SAT 97–99; BMI 23.1
--- NOTE | 2023-10-25 02:04 | DI.CT.S_ITS ---
PROCEDURE: CT CHEST ABD PEL WO CON INDICATIONS: Right-sided flank injury after fall with crepitus TECHNIQUE: After the administration of oral contrast, 5 mm thick sections acquired from the lung apices to the symphysis pubis. 5 mm thick coronal and sagittal reformats acquired, with additional 7 mm coronal MIP reformats through the lungs. For radiation dose reduction, the following was used: automated exposure control, adjustment of mA and/or kV according to patient size. COMPARISON: [facility], CT, ANGIO CHEST ABDOMEN PELVIS, 01/09/2018, 18:34. FINDINGS: Image quality: Excellent. CHEST: Lungs and pleura: Trace pneumothorax and hemothorax in the right lung base. Right basilar atelectasis. Mild emphysema. No acute pulmonary opacities. Small calcified lung nodules are present, compatible with remote granulomas. Mediastinum: Heart size is mildly increased. Moderate coronary artery calcifications. No pericardial effusion. No mediastinal adenopathy by CT size criteria. Mild aneurysm of the thoracic aorta measuring 3.8 x 4.3 cm. The central pulmonary arteries are normal in size. Esophagus is normal in caliber. No hiatal hernia. Chest wall: Minimally displaced right 10th, 11th and 12th rib fractures. There is moderate subcutaneous emphysema. No axillary or supraclavicular adenopathy by size criteria. Thyroid gland is normal . ABDOMEN: Solid organs: Liver is normal in size. Gallbladder is surgically absent . Pancreas is normal in contours. Spleen is normal in size. There are calcified granulomas in spleen. No adrenal nodules. Both kidneys are normal in size, without hydronephrosis or nephrolithiasis. Peritoneum and bowel: Small and large bowel loops are normal in caliber and wall thickness. Extensive colonic diverticulosis. No acute diverticulitis No free fluid or air. Nodes and vessels: No retroperitoneal or mesenteric adenopathy by size criteria. Aorta is tortuous and diffusely aneurysmal measuring 3.8 x 4.3 cm. There is infrarenal fusiform aneurysm measuring 6.4 x 6.5 cm. Mild bilateral common iliac artery aneurysm measuring 1.8 cm on the right and 1.7 cm on the left. Severe atherosclerosis. Miscellaneous: No ventral hernias. PELVIS: Genitourinary: Bladder wall thickness is normal. Miscellaneous: No inguinal hernias or adenopathy. Bones: No suspicious bony lesions. No vertebral body compression fractures. IMPRESSION: 1. Minimally displaced right 10th, 11th and 12th rib fractures. There is trace pneumothorax and hemothorax. Moderate subcutaneous emphysema is present adjacent to the rib fractures. 2. Mild diffuse aortic aneurysm. There is superimposed fusiform infrarenal abdominal aortic aneurysm measuring 6.4 x 6.5 cm. 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 There is severe atherosclerosis. 3. Diverticulosis without acute diverticulitis. 4. Mild emphysema. 5. Remote granulomatous disease. The trace right basilar pneumothorax/hemothorax was not mentioned on the preliminary report. The result was discussed with Dr. Morel in ER. Dictated by: Rina Tracey M.D. on 10/25/2023 at 7:54 Approved by: Rina Tracey M.D. on 10/25/2023 at 11:20
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
[2023-10-25 02:34] LABS: Add Manual Diff / Slide Review NO; Basophils Absolute Auto 200 /uL (0-100); Basophils Percent Auto 2.1 % (0-2); Eosinophils Absolute Auto 200 /uL (0-450); Eosinophils Percent Auto 1.9 % (2-4); Hematocrit 27.6 % (41-53); Hemoglobin 8.8 g/dL (13.5-17.5); Lymphocytes Absolute Auto 1100 /uL (1100-4500); Lymphocytes Percent Auto 13.9 % (25-40); Mean Corpuscular HGB Conc 31.9 % (30-36); Mean Corpuscular Hemoglobin 26.6 PG (26-34); Mean Corpuscular Volume 83.5 fL (80-100); Monocytes Absolute Auto 500 /uL (0-900); Monocytes Percent Auto 6.3 % (3-14); Neutrophils Absolute Auto 6200 /uL (1500-7000); Neutrophils Percent Auto 75.8 % (50-75); Platelet Count 191 X10^3/uL (150-400); Red Blood Cell Count 3.31 X10^6/uL (4.5-5.9); Red Cell Distribution Width 18.6 % (11.6-14.8); White Blood Cell Count 8.1 X10^3/uL (4.5-11.0)
[2023-10-25 02:44] LABS: Alanine Aminotransferase 19 IU/L (<50); Albumin 4.2 g/dL (3.5-5.0); Albumin Globulin Ratio 1.1 (1.0-2.8); Alkaline Phosphatase 112 U/L (38-126); Aspartate Aminotransferase 30 IU/L (17-59); BUN Creatinine Ratio 8.4 (6-22); Bilirubin Total 0.6 mg/dL (0.2-1.3); Blood Urea Nitrogen 32 mg/dL (9-20); Calcium 9.6 mg/dL (8.4-10.2); Carbon Dioxide 20 mmol/L (22-32); Chloride 107 mmol/L (98-107); Estimated Glomerular Filt Rate 15 mL/min (>60); Globulin 3.7 g/dL (1.7-4.1); Glucose 87 mg/dL (80-110); HEMOLYSIS < 15 (0-50); Potassium 4.7 mmol/L (3.4-5.1); Sodium 138 mmol/L (137-145); Total Protein 7.9 g/dL (6.3-8.2)
[2023-10-25] MEDS: ACETAMINOPHEN IV 1,000 MG/100 ML VIAL 400 MG IV (04:35)
[2023-10-25] MEDS: HYDROCODONE/ACET 5/325 PREPACK 1 BOTTLE MISC (04:36)
--- NOTE | 2023-10-25 04:44 | PC.NURSE ---
Pt required one person assist to bathroom.
== END 2023-10-25 05:05 | disposition left against medical advice (07) ==
PROVIDERS: Emergency Provider Emergency Medicine; Family Provider Family Medicine; PCP Family Medicine
DX: S22.41XA Multiple fractures of ribs, right side, initial encounter for closed fracture (principal); S27.0XXA Traumatic pneumothorax, initial encounter; T79.7XXA Traumatic subcutaneous emphysema, initial encounter; W19.XXXA Unspecified fall, initial encounter; Z53.29 Procedure and treatment not carried out because of patient's decision for other reasons
CPT/HCPCS: 36415; 71250; 74176; 80053; 85025; 96374; 99284; J0131

== ENCOUNTER 2023-10-30 08:05 | Emergency (ER) | payer MEDICARE, SELFPAY ==
[2022-01-27 09:06] VITALS: BMI 21.9
[2023-10-30 08:36] VITALS: BP 189/102; PULSE 98; RESP 18; TEMP 36.3; O2SAT 99; BMI 22.8
--- NOTE | 2023-10-30 08:47 | DI.RAD.S_ITS ---
PROCEDURE: XR CHEST 2V INDICATIONS: known R lower rib fx with sub Q emphysema eval for worsening TECHNIQUE: 2 views of the chest were acquired. COMPARISON: [facility], CR, XR CHEST 1V, 11/29/2021, 17:41. [facility], CR, XR CHEST 2V, 09/02/2021, 18:51. [facility], CT, CT CHEST ABD PEL WO CON, 10/25/2023, 3:00. FINDINGS: Surgical changes and devices: None. Lungs and pleura: Small right effusion. Known right basilar pneumothorax is not appreciated. Mediastinum: Mediastinal contours are normal. Heart size is normal. Bones and chest wall: Similar right lower rib fractures. IMPRESSION: Small right effusion. Known right basilar pneumothorax is not appreciated. Similar right lower rib fractures. Dictated by: Armani Brice M.D. on 10/30/2023 at 9:04 Approved by: Armani Brice M.D. on 10/30/2023 at 9:07
--- NOTE | 2023-10-30 08:53 | ED.RECABL ---
HPI - Recheck/Abnormal Lab/Rx General Chief Complaint: Recheck/Abnormal Lab/Rx Stated Complaint: cracked ribs Time Seen by Provider: 10/30/23 08:37 Source: patient Mode of arrival: Family Vehicle History of Present Illness HPI narrative: Patient is an 82-year-old male. I evaluated him here in the emergency department several days ago and diagnosed with right-sided subcu emphysema and 3 fractured ribs. He had no pneumothorax at the time. Pain was controlled however given his age that was advised that he be admitted to the hospital. He could not be admitted because he needed to go home and take care of his . He returns today wanting to be checked out. He denies any fevers, chest pain, shortness of breath, cough. He does have some significant bruising along his right flank and lower abdomen but states that his pain is relatively controlled. Related Data Home Medications Medication Instructions Recorded Confirmed albuterol sulfate 90 mcg/actuation 2 puff inhalation Q4H PRN 08/31/21 02/09/22 aerosol inhaler (Ventolin HFA) Shortness Of Breath Or Wheezing aspirin 81 mg tablet,delayed 81 mg PO DAILY 08/31/21 02/09/22 release felodipine 10 mg tablet,extended 10 mg PO DAILY 11/16/21 02/09/22 release 24 hr furosemide 20 mg tablet 20 mg PO BID 11/16/21 02/09/22 lisinopril 20 mg tablet 20 mg PO BID 11/16/21 02/09/22 simvastatin 40 mg tablet 40 mg PO DAILY 11/16/21 02/09/22 Previous Rx's Medication Instructions Recorded acetaminophen 325 mg capsule 650 mg (2 x 325 mg) PO QID PRN 01/24/22 (Tylenol) pain #60 caps docusate sodium 100 mg capsule 100 mg PO BID #30 caps 01/24/22 (Colace) tramadol 50 mg tablet 50 mg PO Q6H PRN pain #30 tabs 02/09/22 hydrocodone 5 mg-acetaminophen 325 1 tab PO Q4-6H PRN pain #10 tabs // mg tablet Allergies Allergy/AdvReac Type Severity Reaction Status Date / Time No Known Drug Allergies Allergy Verified 02/09/22 13:07 Review of Systems Constitutional Constitutional: Reports system reviewed and no additional complaints, except as documented Cardiovascular Cardiovascular: Reports system reviewed and no additional complaints, except as documented Respiratory Respiratory: Reports system reviewed and no additional complaints, except as documented Integumentary/Breasts Skin/Breast: Reports system reviewed and no additional complaints, except as documented Hematologic/Lymphatic On Anticoagulants: No Patient History Medical History Easy bruisability Cardiac dysrhythmia PVD (peripheral vascular disease) Cervical radiculopathy Erectile dysfunction Claudication Pulmonary nodule Carotid artery occlusion Hyperlipidemia Essential (primary) hypertension CAD (coronary artery disease) COPD (chronic obstructive pulmonary disease) Chronic kidney disease, stage 3 Acute bronchitis Inguinal hernia Aortic aneurysm Non-ST elevated myocardial infarction Pulmonary nodules/lesions, multiple Essential hypertension Surgical History Status post carotid surgery Hx of cholecystectomy (~2017) Social History household members: spouse Smoking Status: Former smoker alcohol intake: former Smoking Status: Former smoker alcohol intake frequency: holidays/special occasions only Substance Use Type: does not use Exam Initial Vital Signs Initial Vital Signs: Vital Signs Temperature 97.4 F L 10/30/23 08:36 Pulse Rate 98 H 10/30/23 08:36 Respiratory Rate 18 10/30/23 08:36 Blood Pressure 189/102 H 10/30/23 08:36 Pulse Oximetry 99 10/30/23 08:36 Oxygen Delivery Method Room Air 10/30/23 08:36 HENMT Head: normal to inspection and normocephalic Chest Other: No crepitus noted Resp Effort & Inspection: normal respiratory effort Auscultation: clear to auscultation bilaterally Cardio Rate: regular rate Back/Spine/Pelvis Other: No crepitus noted along the right flank or back where it was present a couple days ago Skin Other: Bruising along the right flank and the right lower quadrant of the abdomen. Extrem General: normal to inspection and capillary refill normal Course Orders Ordered: ED Orders 10/30/23 08:47 XR chest 2V Stat Vital Signs Vital signs: Vital Signs - 8 hr 10/30/23 08:36 Temperature 97.4 F L Pulse Rate 98 H Respiratory Rate 18 Blood Pressure 189/102 H Pulse Oximetry 99 Oxygen Delivery Method Room Air MDM - Recheck/Abnormal Lab/Rx Imaging Data Chest x-ray: Radiologist's Impression: PROCEDURE: XR CHEST 2V INDICATIONS: known R lower rib fx with sub Q emphysema eval for worsening TECHNIQUE: 2 views of the chest were acquired. COMPARISON: [facility], CR, XR CHEST 1V, 11/29/2021, 17:41. [facility], CR, XR CHEST 2V, 09/02/2021, 18:51. [facility], CT, CT CHEST ABD PEL WO CON, 10/25/2023, 3:00. FINDINGS: Surgical changes and devices: None. Lungs and pleura: Small right effusion. Known right basilar pneumothorax is not appreciated. Mediastinum: Mediastinal contours are normal. Heart size is normal. Bones and chest wall: Similar right lower rib fractures. IMPRESSION: Small right effusion. Known right basilar pneumothorax is not appreciated. Similar right lower rib fractures. Discharge Plan Departure Patient Disposition: Home Clinical Impression: Fracture of rib, Contusion of flank Activity Restrictions/Additional Instructions: I do recommend that you continue with the incentive spirometer that you were sent home with. If you start to have worsening symptoms or fevers or problems breathing please return to the emergency department. Contact your primary doctor for follow-up. Prescriptions: No Action simvastatin 40 mg tablet 40 mg PO DAILY lisinopril 20 mg tablet 20 mg PO BID furosemide 20 mg tablet 20 mg PO BID felodipine 10 mg tablet extended release 24 hr 10 mg PO DAILY tramadol 50 mg tablet 50 mg PO Q6H PRN (Reason: pain) Qty: 30 0RF aspirin 81 mg Tablet,Delayed Release (Dr/Ec) 81 mg PO DAILY albuterol sulfate [Ventolin HFA] 90 mcg/actuation Hfa Aerosol Inhaler 2 puff INHALATION Q4H PRN (Reason: Shortness Of Breath Or Wheezing) docusate sodium [Colace] 100 mg capsule 100 mg PO BID Qty: 30 0RF acetaminophen [Tylenol] 325 mg capsule 650 mg PO QID PRN (Reason: pain) Qty: 60 0RF hydrocodone-acetaminophen 5-325 mg tablet 1 tab PO Q4-6H PRN (Reason: pain) Qty: 10 0RF Referrals: Brad Jean-Baptiste MD [Primary Care Provider] - Stand Alone Forms: Patient Portal/API
[2023-10-30 08:57] VITALS: PULSE 99; O2SAT 98
[2023-10-30 09:00] VITALS: PULSE 91; O2SAT 99
[2023-10-30 09:23] VITALS: BP 189/83; PULSE 89; O2SAT 98
[2023-10-30 09:30] VITALS: PULSE 91; O2SAT 98
[2023-10-30 09:31] VITALS: BP 190/93; PULSE 96; O2SAT 98
== END 2023-10-30 09:47 | disposition home or self-care (01) ==
PROVIDERS: Emergency Provider Emergency Medicine; Family Provider Family Medicine; PCP Family Medicine
DX: S22.41XA Multiple fractures of ribs, right side, initial encounter for closed fracture (principal); S30.1XXA Contusion of abdominal wall, initial encounter
CPT/HCPCS: 71046; 99283